=== PATIENT | female | born 1990 | race American Indian/Alaskan Native ===

== ENCOUNTER 2017-10-02 12:06 | Emergency (ER) | payer MEDICAID ==
[2017-10-02 12:37] VITALS: BP 119/67
--- NOTE | 2017-10-02 14:13 | Emergency Department Report ---
ED Laceration HPI - HPI Chief Complaint: Wound/Laceration Stated Complaint: SPLINTER UNDER FINGERNAIL Time Seen by Provider: 10/02/17 14:13 Occurred When: Today Location: Upper Extremity Severity: mild Tetanus Status: Not up to Date Laceration Symptoms: Yes Foreign Body Sensation, Yes Pain, No Numbness, No Weakness Other History: This is a 26-year-old female nontoxic, well nourished in appearance, no acute signs of distress presents to the ED with c/o of finger splint to the right ring finger that occured this morning. Patient stated she was moving her couch and a splinter went into her fingernail. Patient denies any other trauma. Patient denies any nausea, vomiting, chest pain, shortness of breathe, fever, chills, headache, nausea, vomiting, numbness, or tingling. Patient stated allergies to PCN. Denies any PMH. ED Review of Systems ROS: Stated complaint: SPLINTER UNDER FINGERNAIL Other details as noted in HPI Constitutional: denies: chills, fever Eyes: denies: eye pain, eye discharge, vision change ENT: denies: ear pain, throat pain Respiratory: denies: cough, shortness of breath, wheezing Cardiovascular: denies: chest pain, palpitations Endocrine: no symptoms reported Gastrointestinal: denies: abdominal pain, nausea, diarrhea Genitourinary: denies: urgency, dysuria, discharge Musculoskeletal: denies: back pain, joint swelling, arthralgia Skin: denies: rash, lesions Neurological: denies: headache, weakness, paresthesias Psychiatric: denies: anxiety, depression Hematological/Lymphatic: denies: easy bleeding, easy bruising ED Past Medical Hx - Past Medical History Hx Heart Attack/AMI: No Hx Congestive Heart Failure: No Hx Diabetes: No Hx Deep Vein Thrombosis: No Hx Renal Disease: No Hx Sickle Cell Disease: No Hx Seizures: No Hx Asthma: No Hx COPD: No Hx HIV: No Additional medical history: hyperemesis gravidarium - Surgical History Past Surgical History?: No - Social History Smoking Status: Current Every Day Smoker Substance Use Type: Alcohol - Medications Home Medications: Home Medications Medication Instructions Recorded Confirmed Last Taken Type Vit-Fe Fumar-FA [ 1 tab PO QDAY 03/16/15 03/16/15 03/15/15 History Vitamin] Sulfamethoxazole/Trimethoprim 1 each PO BID #14 tablet 10/02/17 Unknown Rx [Bactrim DS TAB] traMADol [Ultram] 50 mg PO Q6HR PRN #15 tablet 10/02/17 Unknown Rx Laceration Physical Exam - Exam General: Vital signs noted. No distress. Alert and acting appropriately. GENERAL: The patient is a well-developed, well-nourished in no apparent distress. Patient is alert and acting appropriately for age. Alert and oriented 3, no apparent distress, normal gait, atraumatic. HEENT: Head is normocephalic and atraumatic. PERRL, Extraocular muscles are intact. Pupils are equal, round, and reactive to light and accommodation. Nares appeared normal. Mouth is well hydrated and without lesions. Mucous membranes are moist. Posterior pharynx clear of any exudate or lesions. Mouth is well hydrated and without lesions. Tonsils not erythematous or swollen. Uvula midline. Tongue elevated. Mucous members are moist. Posterior pharynx clear, no exudate or lesions. Patent airways. NECK: Supple. No carotid bruits. No lymphadenopathy or thyromegaly.nontender. No meningitic signs are noted. LUNGS: Clear to auscultation. Non labor breathing. No intercostal retractions. Symmetrical with respiration, no wheezing, no rales, or crackles. HEART: Regular rate and rhythm without murmur, rubs or gallops. No reproducible. S1, S2 present, regular rate and rhythm without murmur, no rubs, no gallops. ABDOMEN: Soft, nontender, and nondistended. Positive bowel sounds. No hepatosplenomegaly was noted. No guarding or rebound tenderness, negative epigastric bruit. Negative psoas sign, negative zapata sign, negative McBurneys sign EXTREMITIES: Without any cyanosis, clubbing, rash, lesions or edema. Peripheral pulses intact. Capillary refill less than 2 seconds. Full range of motion bilaterally. NEUROLOGIC: Cranial nerves II through XII are grossly intact. Alert and oriented x 3. Normal gait. Symmetrical strength and sensation. Reflexes 2+ throughout. Cerebellar testing normal. GCS score of 15. PSYCHIATRIC: Normal affect with no suicidal or homicidal ideations. Skin: One centimeter straight black foreign body noted underneath the nail of the right ring. Laceration Location: Upper Extremity Laceration Exam: Yes Foreign Body, Yes Normal Distal CMS, No Exposed Tendon, Vessel, or Nerve, No Tendon Injury ED Course Vital Signs 10/02/17 12:35 Temperature 98.4 F Pulse Rate 77 Respiratory 18 Rate Blood Pressure 119/67 O2 Sat by Pulse 100 Oximetry - Reevaluation(s) Reevaluation #1: 10/02/17 14:57 Patient is speaking in full sentences with no signs of distress noted. - Procedure Description Procedures done: Under sterile field, I used Betadine to clean the area. I then used 40 mL of normal saline to flush the area. I then used 1 0.5% Marcaine plain for a digital block and injected 3 mL. I then used a 0.5 forceps and went under the nail bed and removed 2 pieces of 0.5 cm straight for body which is consistent with a piece of wood. I then applied a sterile 4 x 4 with tape. Minimal bleeding noted but is under control. Patient tolerated procedure well with no signs of distress. Critical care attestation.: If time is entered above; I have spent that time in minutes in the direct care of this critically ill patient, excluding procedure time. ED Disposition Clinical Impression: Foreign body of finger of right hand Qualifiers: Encounter type: initial encounter Qualified Code(s): S60.459A - Superficial foreign body of unspecified finger, initial encounter Disposition: DC-01 TO HOME OR SELFCARE Is pt being admited?: No Does the pt Need Aspirin: No Condition: Stable Instructions: Soft Tissue Foreign Body (ED) Additional Instructions: Follow-up with a primary care doctor in 3-5 days or if symptoms worsen and continue return to emergency room as soon as possible. Prescriptions: Sulfamethoxazole/Trimethoprim [Bactrim DS TAB] 1 each PO BID #14 tablet traMADol [Ultram] 50 mg PO Q6HR PRN #15 tablet PRN Reason: Pain Referrals: PRIMARY CARE, [Primary Care Provider] - 3-5 Days JUANI AREVALO MD [Staff Physician] - 3-[address] [facility] [Outside] - 3-5 Days [facility] [Outside] - 3-5 Days Forms: Work/School Release Form(ED)
[2017-10-02] MEDS ORDERED: MARCAINE 0.5% INFILTRATI ONE (14:29)
[2017-10-02] MEDS ORDERED: BOOSTRIX IM ONE (14:30)
== END 2017-10-02 15:20 | disposition home or self-care (01) ==
LOC: ED 12:06
DX: S60.454A Superficial foreign body of right ring finger, initial encounter (principal); F17.200 Nicotine dependence, unspecified, uncomplicated; Z88.0 Allergy status to penicillin; W45.8XXA Other foreign body or object entering through skin, initial encounter; Y93.89 Activity, other specified; Y99.8 Other external cause status; Y92.89 Other specified places as the place of occurrence of the external cause
CPT/HCPCS: 90471; 90715

== ENCOUNTER 2017-12-17 11:45 | Emergency (ER) | payer MEDICAID ==
[2017-12-17 12:15] VITALS: BP 126/71
[2017-12-17 13:44] LABS: Bacteria,Urine 1+ /HPF (Negative); Bilirubin,Urine NEG (Negative); Blood,Urine NEG (Negative); Color,Urine Yellow (Yellow); HCG Qualitative,Urine Negative (Negative); Mucus,Urine 1+ /HPF; Protein,Urine <15 mg/dL mg/dL (Negative); Urobilinogen,Urine < 2.0 mg/dL (<2.0)
--- NOTE | 2017-12-17 14:17 | Emergency Department Report ---
ED Back Pain/Injury HPI - General Chief Complaint: Back Pain/Injury Stated Complaint: SEVERE BACK PAIN/CRAMPS/CP Time Seen by Provider: 12/17/17 13:35 Source: patient, family Limitations: No Limitations - History of Present Illness Initial Comments: Patient reports that she has lower mid back pain on and off times one month of bilateral radiation around and down both legs. She is concerned for fibroids but she has not reported this to her AIR TUCKER. She does have AIR TUCKER doctor. Patient also said the pain is radiated into her epigastric area and that she is worried about her IUD. Denies any fever or chills. Pain is 6 out of 10 to back and feels dull. Denies any trauma. Denies any nausea or vomiting. Denies any vaginal discharge or bleeding. Denies any chest pain or shortness of breath. Denies any swelling in legs. Last menstrual period 09/21/2017 Complaint: back pain Onset/Timin -: month(s) Similar Symptoms Previously: Yes Place: home Radiation: abdomen, left leg, right leg Severity: moderate Severity scale (0 -10): 6 Quality: dull Consistency: intermittent Improves With: none Worsens With: none Context: unknown Associated Symptoms: abdominal pain. denies: confusion, weakness, chest pain, numbness, difficulty walking, cough, difficulty urinating, diaphoresis, incontinence, fever/chills, constipation, headaches, loss of appetite, malaise, nausea/vomiting, rash, seizure, shortness of breath, syncope Treatments Prior to Arrival: other - Related Data Home Medications Medication Instructions Recorded Confirmed Last Taken Vit-Fe Fumar-FA [ 1 tab PO QDAY 03/16/15 03/16/15 03/15/15 Vitamin] Previous Rx's Medication Instructions Recorded Last Taken Type Sulfamethoxazole/Trimethoprim 1 each PO BID #14 tablet 10/02/17 Unknown Rx [Bactrim DS TAB] traMADol [Ultram] 50 mg PO Q6HR PRN #15 tablet 10/02/17 Unknown Rx Acetaminophen/Codeine [Tylenol 1 tab PO Q6H PRN #12 tab 12/17/17 Unknown Rx /Codeine # 3 tab] Ibuprofen [Motrin] 600 mg PO Q8H PRN #15 tablet 12/17/17 Unknown Rx Nitrofurantoin Monohyd/M-Cryst 100 mg PO Q12H 5 Days #10 capsule 12/17/17 Unknown Rx [Macrobid 100 mg Capsule] Allergies Allergy/AdvReac Type Severity Reaction Status Date / Time Penicillins Allergy Rash Verified 03/16/15 13:15 ED Review of Systems ROS: Stated complaint: SEVERE BACK PAIN/CRAMPS/CP Other details as noted in HPI Constitutional: denies: chills, fever Eyes: denies: eye pain, eye discharge ENT: denies: ear pain, throat pain Respiratory: denies: cough, shortness of breath, SOB with exertion, SOB at rest , stridor, wheezing Cardiovascular: denies: chest pain, palpitations, dyspnea on exertion, edema, syncope Gastrointestinal: abdominal pain. denies: nausea, diarrhea, constipation, hematemesis, hematochezia Genitourinary: denies: urgency, dysuria, frequency, hematuria, discharge Musculoskeletal: back pain, arthralgia. denies: joint swelling, myalgia Skin: denies: rash, lesions Neurological: denies: headache, weakness, numbness, paresthesias, abnormal gait , vertigo ED Past Medical Hx - Past Medical History Medical history: no medical history Surgical history: no surgical history Psychiatric history: no pertinent history AIR TUCKER history: no AIR TUCKER history Family history: diabetes, hypertension - Social History Smoking Status: Never Smoker Alcohol use: none Drug use: none ED Back Pain Physical Exam - Exam General: Vital signs noted. No distress. Alert and acting appropriately. This is a 27-year-old female well-nourished well-developed in no acute distress. Neurological: Patient alert and oriented 3, GCS of 15, speech is clear and fluid, reflexes are normal and gait are normal. No motor or sensory deficit. Negative Romberg and pronator drift. +5 strength in all extremities. Lungs: Clear to auscultate bilaterally, no rhonchi wheezes or rales CV: S1, S2. Regular rate and rhythm Skin: Clean dry and intact no rash or lesions Psych: S1, S2. Regular rate and rhythm Back/Abdomen: No Abdominal Tenderness (NTTP), No Perithoracic Tenderness (no vertebral tenderness. No rash noted to back), No Perilumbar Tenderness (no vertebral tenderness), No Sacroiliac Tenderness, No Flank Tenderness, No Straight Leg Raise Pain Neuro: Yes Normal Sensation, Yes Motor Weakness, Yes Normal DTR's, Yes Normal Gait ED Course Vital Signs 12/17/17 12:11 Temperature 98.1 F Pulse Rate 68 Respiratory 18 Rate Blood Pressure 126/71 O2 Sat by Pulse 97 Oximetry - Reevaluation(s) Reevaluation #1: 12/17/17 15:43 Patient given hydrocodone 5/325 2 tablets by mouth and Zofran 8 mg by mouth in the emergency room. She reports that her pain is better and she is stable at present. Ed Back Pain Tests - Tests Tests: Abnormal UA (positive leukocyte Estrace and positive bacteria in urine. Culture sent) ED Medical Decision Making - Lab Data Lab Results 12/17/17 Range/Units Unknown Urine Color Yellow (Yellow) Urine Turbidity Clear (Clear) Urine pH 5.0 (5.0-7.0) Ur Specific [place] 1.024 (1.003-1.030) Urine Protein <15 mg/dl (Negative) mg/dL Urine Glucose (UA) Neg (Negative) mg/dL Urine Ketones Tr (Negative) mg/dL Urine Blood Neg (Negative) Urine Nitrite Neg (Negative) Urine Bilirubin Neg (Negative) Urine Urobilinogen < 2.0 (<2.0) mg/dL Ur Leukocyte Esterase Sm (Negative) Urine WBC (Auto) 4.0 (0.0-6.0) /HPF Urine RBC (Auto) 2.0 (0.0-6.0) /HPF U Epithel Cells (Auto) 3.0 (0-13.0) /HPF Urine Bacteria (Auto) 1+ (Negative) /HPF Urine Mucus 1+ /HPF Urine HCG, Qual Negative (Negative) Urine culture sent and pending - EKG Data -: EKG Interpreted by Me (attending physician) EKG shows normal: sinus rhythm Rate: normal (77 bpm) - EKG Data Interpretation: no acute changes, normal EKG - Medical Decision Making Patient has been evaluated by this provider in fast track. She was found to have acute exacerbation of chronic back pain with lumbar radiculopathy which she is had in the past. Patient is also, concern for IUD due to symptoms and concerns for fibroids and she has not been diagnosed with fibroids. She says she has an AIR TUCKER. Patient is neurological intact and her back exam is normal she has a urinary tract infection. I discussed with her she needs to follow-up with her AIR TUCKER regarding evaluation for fibroids, IUD concerns and abnormal menses-referred back to her AIR TUCKER I also discussed that she needs to follow-up with orthopedic doctor regarding chronic back pain-referred to Dr. Umana orthopedist Patient was given [place] 5/852 tablets by mouth for pain and Zofran 8 mg ODT to prevent nausea. Her pain is controlled. Urinalysis done and shows positive leukocyte esterase, positive bacteria and trace ketone. test is negative. 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 Patient discharged home in stable condition with her family with prescription for Tylenol 3, Motrin, her vital signs are stable she is afebrile, she'll be placed on Macrobid for urinary tract infection and she was given prescription. I discussed with her she needs to return to emergency room if her condition worsens but if not to keep referral would AIR TUCKER orthopedic doctor and she voiced understanding. - Differential Diagnosis , acute exacerbation of chronic back pain, UTI Critical care attestation.: If time is entered above; I have spent that time in minutes in the direct care of this critically ill patient, excluding procedure time. ED Disposition Clinical Impression: Acute exacerbation of chronic low back pain, Lumbar radiculopathy UTI (urinary tract infection) Qualifiers: Urinary tract infection type: acute cystitis Hematuria presence: without hematuria Qualified Code(s): N30.00 - Acute cystitis without hematuria Abdominal pain Qualifiers: Abdominal location: lower abdomen, unspecified Qualified Code(s): R10.30 - Lower abdominal pain, unspecified Disposition: TO HOME OR SELFCARE Is pt being admited?: No Does the pt Need Aspirin: No Condition: Stable Instructions: Urinary Tract Infection in Women (ED), Back Pain (ED), Lumbar Radiculopathy (ED), Abdominal Pain (ED) Additional Instructions: Please follow up with AIR TUCKER as discussed. Call your AIR TUCKER and schedule an appointment for follow-up visit Follow-up with Dr. Umana was orthopedic doctor regarding your back pain or radiation down to the legs. Take medication as prescribed but please do not drive or operate heavy machinery while taking Tylenol No. 3 as it causes drowsiness Take Macrobid for urinary tract infection and make sure you drink plenty of water Prescriptions: Acetaminophen/Codeine [Tylenol /Codeine # 3 tab] 1 tab PO Q6H PRN #12 tab PRN Reason: severe pain Ibuprofen [Motrin] 600 mg PO Q8H PRN #15 tablet PRN Reason: Pain Nitrofurantoin Monohyd/M-Cryst [Macrobid 100 mg Capsule] 100 mg PO Q12H 5 Days # 10 capsule Referrals: XOCHITL HEREDIA MD [Primary Care Provider] - 2-3 Days CALDERON Daly [Other] - 2-3 Days MERYL UMANA MD [Staff Physician] - 2-3 Days Forms: Work/School Release Form(ED)
[2017-12-17] MEDS ORDERED: ZOFRAN ODT PO ONE (14:19)
[2017-12-17] MEDS ORDERED: NORCO 5/325 PO ONE (14:19)
== END 2017-12-17 16:10 | disposition home or self-care (01) ==
LOC: ED 11:45
DX: N30.00 Acute cystitis without hematuria (principal)
CPT/HCPCS: 81001; 81025; 87086; 93005; 93010; Q0162

== ENCOUNTER 2017-12-19 15:35 | Emergency (ER) | payer MEDICAID ==
[2017-12-19 15:48] VITALS: BP 121/75
--- NOTE | 2017-12-19 21:02 | Emergency Department Report ---
ED Back Pain/Injury HPI - General Chief Complaint: Extremity Injury, Lower Stated Complaint: BACK PAIN Time Seen by Provider: 12/19/17 21:01 Source: patient Limitations: No Limitations - History of Present Illness Initial Comments: 27-year-old -[place] female comes for back and abdominal pain 6 days. Patient states she was seen here on 12/17/2017 for the same issue diagnosis with the UTI and back pain. Patient reports the pain is 8 out of 10 on a 0-10 pain scale. Patient reports that the pain is worse with position change. Patient denies any fever or chills admits to nausea but no vomiting. States that the ibuprofen and the Tylenol 3 is not touching her pain at all. Patient started vomiting while in fast track. MD Complaint: back pain -: days(s) (6) Similar Symptoms Previously: Yes Severity scale (0 -10): 8 Consistency: constant Improves With: none Worsens With: movement - Related Data Home Medications Medication Instructions Recorded Confirmed Last Taken Vit-Fe Fumar-FA [ 1 tab PO QDAY 03/16/15 03/16/15 03/15/15 Vitamin] Previous Rx's Medication Instructions Recorded Last Taken Type Sulfamethoxazole/Trimethoprim 1 each PO BID #14 tablet 10/02/17 Unknown Rx [Bactrim DS TAB] traMADol [Ultram] 50 mg PO Q6HR PRN #15 tablet 10/02/17 Unknown Rx Acetaminophen/Codeine [Tylenol 1 tab PO Q6H PRN #12 tab 12/17/17 Unknown Rx /Codeine # 3 tab] Ibuprofen [Motrin] 600 mg PO Q8H PRN #15 tablet 12/17/17 Unknown Rx Nitrofurantoin Monohyd/M-Cryst 100 mg PO Q12H 5 Days #10 capsule 12/17/17 Unknown Rx [Macrobid 100 mg Capsule] HYDROcodone/ACETAMINOPHEN [[place] 1 each PO Q6H PRN 3 Days #12 tablet 12/20/17 Unknown Rx 7.5-325 Tablet] Allergies Allergy/AdvReac Type Severity Reaction Status Date / Time Penicillins Allergy Rash Verified 03/16/15 13:15 ED Review of Systems ROS: Stated complaint: BACK PAIN Other details as noted in HPI ED Past Medical Hx - Past Medical History Previous Medical History?: Yes Hx Heart Attack/AMI: No Hx Congestive Heart Failure: No Hx Diabetes: No Hx Deep Vein Thrombosis: No Hx Renal Disease: No Hx Sickle Cell Disease: No Hx Seizures: No Hx Asthma: No Hx COPD: No Hx HIV: No Additional medical history: hyperemesis gravidarium - Surgical History Past Surgical History?: No - Social History Smoking Status: Current Every Day Smoker Substance Use Type: None - Medications Home Medications: Home Medications Medication Instructions Recorded Confirmed Last Taken Type Vit-Fe Fumar-FA [ 1 tab PO QDAY 03/16/15 03/16/15 03/15/15 History Vitamin] Sulfamethoxazole/Trimethoprim 1 each PO BID #14 tablet 10/02/17 Unknown Rx [Bactrim DS TAB] traMADol [Ultram] 50 mg PO Q6HR PRN #15 tablet 10/02/17 Unknown Rx Acetaminophen/Codeine [Tylenol 1 tab PO Q6H PRN #12 tab 12/17/17 Unknown Rx /Codeine # 3 tab] Ibuprofen [Motrin] 600 mg PO Q8H PRN #15 tablet 12/17/17 Unknown Rx Nitrofurantoin Monohyd/M-Cryst 100 mg PO Q12H 5 Days #10 capsule 12/17/17 Unknown Rx [Macrobid 100 mg Capsule] HYDROcodone/ACETAMINOPHEN [[place] 1 each PO Q6H PRN 3 Days #12 tablet 12/20/17 Unknown Rx 7.5-325 Tablet] ED Physical Exam - General Limitations: No Limitations General appearance: alert, in no apparent distress - Head Head exam: Present: atraumatic, normocephalic - Eye Eye exam: Present: normal appearance, PERRL - ENT ENT exam: Present: mucous membranes moist - Neck Neck exam: Present: full ROM. Absent: lymphadenopathy - Respiratory Respiratory exam: Present: normal lung sounds bilaterally. Absent: respiratory distress - Cardiovascular Cardiovascular Exam: Present: regular rate, normal rhythm. Absent: systolic murmur, diastolic murmur, rubs, gallop - GI/Abdominal GI/Abdominal exam: Present: soft. Absent: distended, tenderness - Extremities Exam Extremities exam: Present: full ROM. Absent: tenderness, pedal edema - Back Exam Back exam: Present: tenderness (lower back) - Neurological Exam Neurological exam: Present: alert, oriented X3 - Psychiatric Psychiatric exam: Present: normal affect, normal mood - Skin Skin exam: Present: warm, dry, intact, normal color. Absent: rash ED Course Vital Signs 12/19/17 15:43 Temperature 98.1 F Pulse Rate 71 Respiratory 18 Rate Blood Pressure 121/75 O2 Sat by Pulse 100 Oximetry ED Medical Decision Making - Lab Data Result diagrams: 12/19/17 21:30 12/19/17 21:30 - Radiology Data Radiology results: report reviewed, image reviewed FINDINGS: Uterus measures 7.3 x 3.5 x 3.5 centimeters. Endometrial stripe measures 4 millimeters. IUD is the slightly low lying localized to the mid inferior margin the endometrial canal as well as the endocervical canal region. Limbs of the IUD appear to be imbedded in the myometrium. This is better seen by CT. Probable tiny focus of calcification along the mid uterine body. No other uterine lesions. Right ovary measures 3.3 x 2.1 x 2.9 centimeters. Left ovary measures 3.2 x 1.4 x 2.4 centimeters. Small follicles are present. No adnexal masses or free fluid. IMPRESSION: IUD is low lying localized lower uterine segment and endocervical canal region. The limbs of the IUD. To be imbedded in the myometrium. This is better seen by CT. Punctate calcification within the uterine body. No other uterine lesions. Ovaries are grossly unremarkable. Transcribed By: LMA Dictated By: LATA ARIZA MD Electronically Authenticated By: LATA ARIZA MD Signed Date/Time: 12/20/17319 DD/ 9 CT abdomen and pelvis with contrast Findings: The lung bases are clear. There are no pleural effusions. The heart size is normal. The liver, pancreas and spleen appears normal. The gallbladder is present. Adrenal glands are not enlarged. Both kidneys appear normal in size and configuration. The abdominal aorta has a normal caliber. There is no retroperitoneal adenopathy. On palpation D gastroenterology track is unremarkable. A normal appendix is visible. The bladder is empty. There is an IUD in the uterus. One limb of the IUD may penetrate the myometrium. This could be better evaluated by ultrasound scanning. There is no fluid in the cul- de-sac. There are regional skeleton appears intact. Impression: Indeterminate positioning of the IUD within the uterus. Otherwise normal studies of the abdomen and pelvic. - Medical Decision Making Patient has been evaluated for this provider fast track. Patient's a repeat from 12/17/2017. Labs were ordered CT of the abdomen and pelvic shows that her IUD arm may be embedded into the myometrium they recommended ultrasound Ultrasound performed shows that there may be arm in the myometrium they recommended a CT. Patient has an appointment today which is 12/20/2017 with [facility]. Patient's pain has been managed with morphine which she reports has brought it down to approximately about a 5-6 versus a at 8-10. Critical care attestation.: If time is entered above; I have spent that time in minutes in the direct care of this critically ill patient, excluding procedure time. ED Disposition Clinical Impression: IUD complication Qualifiers: Device complication type: mechanical Mechanical complication type: displacement Encounter type: initial encounter Qualified Code(s): T83.32XA - Displacement of intrauterine contraceptive device, initial encounter UTI (urinary tract infection) Qualifiers: Urinary tract infection type: acute cystitis Hematuria presence: without hematuria Qualified Code(s): N30.00 - Acute cystitis without hematuria Disposition: - TO HOME OR SELFCARE Is pt being admited?: No Does the pt Need Aspirin: No Condition: Stable Additional Instructions: Please be sure to keep your appointment with [facility] today which is . Prescription for [place] 5/325 for pain management. Please continue with her antibiotics for urinary tract infection that was prescribed to you on 12/17/2017. Prescriptions: HYDROcodone/ACETAMINOPHEN [[place] 7.5-325 Tablet] 1 each PO Q6H PRN 3 Days #12 tablet PRN Reason: Pain , Severe (7-10) Referrals: PRIMARY CARE, [Primary Care Provider] - 3-5 Days [facility] [Provider Group] - 3-5 Days Forms: Work/School Release Form(ED)
[2017-12-19] MEDS ORDERED: ZOFRAN ODT PO ONE (21:15)
[2017-12-19] MEDS ORDERED: ZOFRAN ONE (21:31)
[2017-12-19] MEDS ORDERED: ZOFRAN IV ONE (21:36)
[2017-12-19 22:00] LABS: Basophils % (Auto) 0.5 % (0.0-1.8); Eosinophils # (Auto) 0.1 K/mm3 (0.0-0.4); Eosinophils % (Auto) 0.7 % (0.0-4.3); Hematocrit 44.3 % (30.3-42.9); Hemoglobin 14.1 gm/dl (10.1-14.3); Lymphocytes % (Auto) 36.4 % (13.4-35.0); Mean Corpuscular HGB Conc 32 % (30-34); Mean Corpuscular Hemoglobin 28 pg (28-32); Mean Corpuscular Volume 89 fl (79-97); Monocytes # (Auto) 0.4 K/mm3 (0.0-0.8); Monocytes % (Auto) 4.6 % (0.0-7.3); Platelet Count 263 K/mm3 (140-440); Red Blood Count 4.97 M/mm3 (3.65-5.03); Red Cell Distribution Width 13.4 % (13.2-15.2)
[2017-12-19 22:17] LABS: Alanine Aminotransferase 21 units/L (7-56); Albumin 4.8 g/dL (3.9-5); BUN/Creatinine Ratio 11; Blood Urea Nitrogen 10 mg/dL (7-17); Calcium 9.8 mg/dL (8.4-10.2); Hemolysis Index 1
[2017-12-19 23:20] LABS: Bilirubin,Urine NEG (Negative); Blood,Urine LG (Negative); Color,Urine Yellow (Yellow); Mucus,Urine 3+ /HPF; Urobilinogen,Urine < 2.0 mg/dL (<2.0)
[2017-12-19 23:33] LABS: RBC,Urine > 182.0 /HPF (0.0-6.0)
--- NOTE | 2017-12-19 23:44 | Cat Scan Report ---
FINAL REPORT PROCEDURE: CT abdomen and pelvis with contrast. TECHNIQUE: Computerized axial tomography of the abdomen and pelvis was performed after the IV injection of iodinated nonionic contrast. HISTORY: Abdominal pain with vomiting. COMPARISON: No prior studies are available for comparison. FINDINGS: The lung bases are clear. There are no pleural effusions. The heart size is normal. The liver, pancreas and spleen appear normal. The gallbladder is present. The adrenal glands are not enlarged. Both kidneys appear normal in size and configuration. The abdominal aorta has a normal caliber. There is no retroperitoneal adenopathy. The unopacified gastrointestinal tract is unremarkable. A normal appendix is visible. The bladder is empty. There is an IUD in the uterus. One limb of the IUD may penetrate the myometrium. This could be better evaluated by ultrasound scanning. There is no fluid in the cul-de-sac. The regional skeleton appears intact. IMPRESSION: Indeterminate positioning of the IUD within the uterus. Otherwise normal studies of the abdomen and pelvis.
[2017-12-20] MEDS ORDERED: MORPHINE IV ONE ×2 (00:27→03:41)
[2017-12-20] MEDS ORDERED: REGLAN IV ONE (00:27)
--- NOTE | 2017-12-20 03:25 | Ultrasound Report ---
FINAL REPORT EXAM: US TRANSVAGINAL HISTORY: IUD issue, pain COMPARISON: CT of the abdomen and pelvis from yesterday. TECHNIQUE: Several real-time grayscale and color Doppler images were obtained. Transabdominal and transvaginal exam. FINDINGS: Uterus measures 7.3 x 3.5 x 3.5 centimeters. Endometrial stripe measures 4 millimeters. IUD is the slightly low lying localized to the mid inferior margin the endometrial canal as well as the endocervical canal region. Limbs of the IUD appear to be imbedded in the myometrium. This is better seen by CT. Probable tiny focus of calcification along the mid uterine body. No other uterine lesions. Right ovary measures 3.3 x 2.1 x 2.9 centimeters. Left ovary measures 3.2 x 1.4 x 2.4 centimeters. Small follicles are present. No adnexal masses or free fluid. IMPRESSION: IUD is low lying localized lower uterine segment and endocervical canal region. The limbs of the IUD. To be imbedded in the myometrium. This is better seen by CT. Punctate calcification within the uterine body. No other uterine lesions. Ovaries are grossly unremarkable.
--- NOTE | 2017-12-20 03:25 | Ultrasound Report ---
FINAL REPORT EXAM: US PELVIC COMPLETE HISTORY: concern for IUD in the myometrium COMPARISON: CT of the abdomen and pelvis from yesterday. TECHNIQUE: Several real-time grayscale and color Doppler images were obtained. Transabdominal and transvaginal exam. FINDINGS: Uterus measures 7.3 x 3.5 x 3.5 centimeters. Endometrial stripe measures 4 millimeters. IUD is the slightly low lying localized to the mid inferior margin the endometrial canal as well as the endocervical canal region. Limbs of the IUD appear to be imbedded in the myometrium. This is better seen by CT. Probable tiny focus of calcification along the mid uterine body. No other uterine lesions. Right ovary measures 3.3 x 2.1 x 2.9 centimeters. Left ovary measures 3.2 x 1.4 x 2.4 centimeters. Small follicles are present. No adnexal masses or free fluid. IMPRESSION: IUD is low lying localized lower uterine segment and endocervical canal region. The limbs of the IUD. To be imbedded in the myometrium. This is better seen by CT. Punctate calcification within the uterine body. No other uterine lesions. Ovaries are grossly unremarkable.
== END 2017-12-20 04:12 | disposition home or self-care (01) ==
LOC: ED 15:35
DX: T83.32XA Displacement of intrauterine contraceptive device, initial encounter (principal); N30.00 Acute cystitis without hematuria; F17.200 Nicotine dependence, unspecified, uncomplicated; Z88.0 Allergy status to penicillin
CPT/HCPCS: 36415; 74177; 76830; 76856; 80053; 81001; 84703; 85025; 96374; 96375; 96376; 99284; J2405; Q9967

== ENCOUNTER 2017-12-20 13:16 | Emergency (ER) | payer MEDICAID ==
[2017-12-20] MEDS ORDERED: ZOFRAN ODT PO ONE (15:58)
[2017-12-20] MEDS ORDERED: TORADOL IM ONE (15:58)
--- NOTE | 2017-12-20 16:49 | Emergency Department Report ---
ED Abdominal Pain HPI - General Chief Complaint: Abdominal Pain Stated Complaint: POSSIBLE IUD REMOVAL Time Seen by Provider: 12/20/17 15:53 Source: patient Mode of arrival: Ambulatory Limitations: No Limitations - History of Present Illness Initial Comments: Ms. Pena is a 27-year-old female who has had abdominal pain for 7 days. Diffuse abdominal pain. No nausea vomiting or appetite. She has IUD in place. She was informed that the IUD is embedded. She feels that her pain is related to the IUD and she wants it removed. She denies any fever. She denies any vaginal discharge. She denies any vaginal bleeding. She received prescription for Morris. She did not fill this prescription. She attempted to have IUD removed today at 2 different clinics. However next available appointment next week. She had a recent fall. She has lower back pain. She feels as if her back "popped". She is able to walk without assistance. She denies any weakness or numbness in the legs. She denies any urinary or fecal Incontinence. Severity scale (0 -10): 8 - Related Data Home Medications Medication Instructions Recorded Confirmed Last Taken Vit-Fe Fumar-FA [ 1 tab PO QDAY 03/16/15 03/16/15 03/15/15 Vitamin] Previous Rx's Medication Instructions Recorded Last Taken Type Sulfamethoxazole/Trimethoprim 1 each PO BID #14 tablet 10/02/17 Unknown Rx [Bactrim DS TAB] traMADol [Ultram] 50 mg PO Q6HR PRN #15 tablet 10/02/17 Unknown Rx Acetaminophen/Codeine [Tylenol 1 tab PO Q6H PRN #12 tab 12/17/17 Unknown Rx /Codeine # 3 tab] Ibuprofen [Motrin] 600 mg PO Q8H PRN #15 tablet 12/17/17 Unknown Rx Nitrofurantoin Monohyd/M-Cryst 100 mg PO Q12H 5 Days #10 capsule 12/17/17 Unknown Rx [Macrobid 100 mg Capsule] HYDROcodone/ACETAMINOPHEN [Morris 1 each PO Q6H PRN 3 Days #12 tablet 12/20/17 Unknown Rx 7.5-325 Tablet] Promethazine [Phenergan TAB] 25 mg PO Q6HR PRN #10 tab 12/20/17 Unknown Rx Allergies Allergy/AdvReac Type Severity Reaction Status Date / Time Penicillins Allergy Rash Verified 03/16/15 13:15 ED Review of Systems ROS: Stated complaint: POSSIBLE IUD REMOVAL Other details as noted in HPI Comment: All other systems reviewed and negative Constitutional: denies: diaphoresis, malaise Respiratory: denies: cough Cardiovascular: denies: chest pain ED Past Medical Hx - Past Medical History Previous Medical History?: No Hx Heart Attack/AMI: No Hx Congestive Heart Failure: No Hx Diabetes: No Hx Deep Vein Thrombosis: No Hx Renal Disease: No Hx Sickle Cell Disease: No Hx Seizures: No Hx Asthma: No Hx COPD: No Hx HIV: No Additional medical history: hyperemesis gravidarium - Surgical History Past Surgical History?: No - Social History Smoking Status: Current Every Day Smoker Substance Use Type: None - Medications Home Medications: Home Medications Medication Instructions Recorded Confirmed Last Taken Type Vit-Fe Fumar-FA [ 1 tab PO QDAY 03/16/15 03/16/15 03/15/15 History Vitamin] Sulfamethoxazole/Trimethoprim 1 each PO BID #14 tablet 10/02/17 Unknown Rx [Bactrim DS TAB] traMADol [Ultram] 50 mg PO Q6HR PRN #15 tablet 10/02/17 Unknown Rx Acetaminophen/Codeine [Tylenol 1 tab PO Q6H PRN #12 tab 12/17/17 Unknown Rx /Codeine # 3 tab] Ibuprofen [Motrin] 600 mg PO Q8H PRN #15 tablet 12/17/17 Unknown Rx Nitrofurantoin Monohyd/M-Cryst 100 mg PO Q12H 5 Days #10 capsule 12/17/17 Unknown Rx [Macrobid 100 mg Capsule] HYDROcodone/ACETAMINOPHEN [Morris 1 each PO Q6H PRN 3 Days #12 tablet 12/20/17 Unknown Rx 7.5-325 Tablet] Promethazine [Phenergan TAB] 25 mg PO Q6HR PRN #10 tab 12/20/17 Unknown Rx ED Physical Exam - General Limitations: No Limitations General appearance: alert, in no apparent distress - Head Head exam: Present: atraumatic, normocephalic - Eye Eye exam: Present: normal appearance - ENT ENT exam: Present: mucous membranes moist - Neck Neck exam: Present: normal inspection - Respiratory Respiratory exam: Present: normal lung sounds bilaterally. Absent: respiratory distress, wheezes, rales, rhonchi - Cardiovascular Cardiovascular Exam: Present: regular rate, normal rhythm, normal heart sounds. Absent: systolic murmur, diastolic murmur, rubs, gallop - GI/Abdominal GI/Abdominal exam: Present: soft, normal bowel sounds. Absent: distended, tenderness, guarding, rebound - Extremities Exam Extremities exam: Present: normal inspection - Back Exam Back exam: Present: normal inspection - Neurological Exam Neurological exam: Present: alert, oriented X3 - Psychiatric Psychiatric exam: Present: normal affect, normal mood - Skin Skin exam: Present: warm, dry, intact, normal color. Absent: rash ED Course Vital Signs 12/20/17 12/20/17 12/20/17 13:23 16:28 16:46 Temperature 98.7 F Pulse Rate 82 72 Respiratory 18 15 Rate Blood Pressure 121/76 112/76 O2 Sat by Pulse 97 99 Oximetry ED Medical Decision Making - Medical Decision Making Ms. Pena has diffuse abdominal pain with nausea and vomiting. I do not feel that the intended IUD explains the majority of her symptoms. Dr. Cruz [employer] was consulted by phone. Dr. Cruz did not feel that the IUD needed to be removed immediately. She needs to follow with [employer] outpatient. No evidence of peritonitis. I reviewed CT and ultrasound reports which were obtained on recent ED encounter last night. No acute process otherwise. Patient has normal white count. Normal vital signs. I have prescribed promethazine. Also provided referral to outpatient [employer]. Critical care attestation.: If time is entered above; I have spent that time in minutes in the direct care of this critically ill patient, excluding procedure time. ED Disposition Clinical Impression: Abdominal pain, IUD complication Disposition: TO HOME OR SELFCARE Is pt being admited?: No Does the pt Need Aspirin: No Condition: Stable Instructions: Abdominal Pain (ED) Prescriptions: Promethazine [Phenergan TAB] 25 mg PO Q6HR PRN #10 tab PRN Reason: Nausea Referrals: SHWETA CRUZ MD [Staff Physician] - 3-5 Days Time of Disposition: 16:43
[2017-12-20 16:59] VITALS: BP 112/76
== END 2017-12-20 16:59 | disposition home or self-care (01) ==
LOC: ED 13:16
DX: T83.39XA Other mechanical complication of intrauterine contraceptive device, initial encounter (principal); F17.200 Nicotine dependence, unspecified, uncomplicated; Z88.0 Allergy status to penicillin
CPT/HCPCS: 96372; 99282; J1885; Q0162

== ENCOUNTER 2017-12-22 00:39 | Emergency (ER) | payer MEDICAID ==
[2017-12-22 02:11] LABS: Bilirubin,Urine NEG (Negative); Blood,Urine NEG (Negative); Color,Urine Yellow (Yellow); Mucus,Urine 2+ /HPF; Protein,Urine <15 mg/dL mg/dL (Negative)
[2017-12-22] MEDS ORDERED: TORADOL IM ONE (02:22)
[2017-12-22] MEDS ORDERED: FLEXERIL PO ONE (02:22)
--- NOTE | 2017-12-22 02:27 | Emergency Department Report ---
ED Back Pain/Injury HPI - General Chief Complaint: Back Pain/Injury Stated Complaint: BACK PAIN Time Seen by Provider: 12/22/17 01:53 Source: patient, EMS Limitations: Physical Limitation - History of Present Illness Initial Comments: This is a 27-year-old female nontoxic, well nourished in appearance, no acute signs of distress presents to the ED with c/o of acute on chronic lower back pain. Patient stated that last night she was bending over to potato picker something and heard a pop and pain started. Patient states has history of sciatica nerve pain which is similar symptoms as today. Patient states that pain radiates through to his left lower extremity. Patient denies any trauma. Denies any bladder or bowel instability. Patient denies any urinary symptoms. Denies any fever, chills, nausea, vomiting, headache, stiff neck, chest pain or shortness of breath. Patient denies any numbness or tingling. Patient stated allergies to PCN. Denies significant past medical history. MD Complaint: back pain -: Last night Similar Symptoms Previously: Yes Place: home Radiation: left leg Severity: mild Severity scale (0 -10): 8 Quality: aching Consistency: intermittent Improves With: immobilization, supine, sitting upright Worsens With: movement, walking Context: while lifting, turning/twisting Associated Symptoms: denies other symptoms. denies: confusion, weakness, chest pain, numbness, difficulty walking, cough, difficulty urinating, diaphoresis, incontinence, fever/chills, constipation, headaches, abdominal pain, loss of appetite, malaise, nausea/vomiting, rash, seizure, shortness of breath, syncope - Related Data Home Medications Medication Instructions Recorded Confirmed Last Taken Vit-Fe Fumar-FA [ 1 tab PO QDAY 03/16/15 03/16/15 03/15/15 Vitamin] Previous Rx's Medication Instructions Recorded Last Taken Type Sulfamethoxazole/Trimethoprim 1 each PO BID #14 tablet 10/02/17 Unknown Rx [Bactrim DS TAB] traMADol [Ultram] 50 mg PO Q6HR PRN #15 tablet 10/02/17 Unknown Rx Acetaminophen/Codeine [Tylenol 1 tab PO Q6H PRN #12 tab 12/17/17 Unknown Rx /Codeine # 3 tab] Ibuprofen [Motrin] 600 mg PO Q8H PRN #15 tablet 12/17/17 Unknown Rx Nitrofurantoin Monohyd/M-Cryst 100 mg PO Q12H 5 Days #10 capsule 12/17/17 Unknown Rx [Macrobid 100 mg Capsule] HYDROcodone/ACETAMINOPHEN [[place] 1 each PO Q6H PRN 3 Days #12 tablet 12/20/17 Unknown Rx 7.5-325 Tablet] Promethazine [Phenergan TAB] 25 mg PO Q6HR PRN #10 tab 12/20/17 Unknown Rx Cyclobenzaprine [Flexeril] 10 mg PO BID PRN #14 tablet 12/22/17 Unknown Rx Ibuprofen [Motrin] 600 mg PO Q8H PRN #30 tablet 12/22/17 Unknown Rx Prednisone [predniSONE 10 mg 10 mg PO .TAPER #1 tab.ds.pk 12/22/17 Unknown Rx (6-Day Pack, 21 Tabs)] Allergies Allergy/AdvReac Type Severity Reaction Status Date / Time Penicillins Allergy Rash Verified 12/22/17 01:13 ED Review of Systems ROS: Stated complaint: BACK PAIN Other details as noted in HPI Constitutional: denies: chills, fever Eyes: denies: eye pain, eye discharge, vision change ENT: denies: ear pain, throat pain Respiratory: denies: cough, shortness of breath, wheezing Cardiovascular: denies: chest pain, palpitations Endocrine: no symptoms reported Gastrointestinal: denies: abdominal pain, nausea, diarrhea Genitourinary: denies: urgency, dysuria, discharge Musculoskeletal: back pain. denies: joint swelling, arthralgia Skin: denies: rash, lesions Neurological: denies: headache, weakness, paresthesias Psychiatric: denies: anxiety, depression Hematological/Lymphatic: denies: easy bleeding, easy bruising ED Past Medical Hx - Past Medical History Hx Heart Attack/AMI: No Hx Congestive Heart Failure: No Hx Diabetes: No Hx Deep Vein Thrombosis: No Hx Renal Disease: No Hx Sickle Cell Disease: No Hx Seizures: No Hx Asthma: No Hx COPD: No Hx HIV: No Additional medical history: hyperemesis gravidarium - Surgical History Past Surgical History?: No - Social History Smoking Status: Never Smoker Substance Use Type: None - Medications Home Medications: Home Medications Medication Instructions Recorded Confirmed Last Taken Type Vit-Fe Fumar-FA [ 1 tab PO QDAY 03/16/15 03/16/15 03/15/15 History Vitamin] Sulfamethoxazole/Trimethoprim 1 each PO BID #14 tablet 10/02/17 Unknown Rx [Bactrim DS TAB] traMADol [Ultram] 50 mg PO Q6HR PRN #15 tablet 10/02/17 Unknown Rx Acetaminophen/Codeine [Tylenol 1 tab PO Q6H PRN #12 tab 12/17/17 Unknown Rx /Codeine # 3 tab] Ibuprofen [Motrin] 600 mg PO Q8H PRN #15 tablet 12/17/17 Unknown Rx Nitrofurantoin Monohyd/M-Cryst 100 mg PO Q12H 5 Days #10 capsule 12/17/17 Unknown Rx [Macrobid 100 mg Capsule] HYDROcodone/ACETAMINOPHEN [[place] 1 each PO Q6H PRN 3 Days #12 tablet 12/20/17 Unknown Rx 7.5-325 Tablet] Promethazine [Phenergan TAB] 25 mg PO Q6HR PRN #10 tab 12/20/17 Unknown Rx Cyclobenzaprine [Flexeril] 10 mg PO BID PRN #14 tablet 12/22/17 Unknown Rx Ibuprofen [Motrin] 600 mg PO Q8H PRN #30 tablet 12/22/17 Unknown Rx Prednisone [predniSONE 10 mg 10 mg PO .TAPER #1 tab.ds.pk 12/22/17 Unknown Rx (6-Day Pack, 21 Tabs)] ED Physical Exam - General Limitations: Physical Limitation General appearance: alert, in no apparent distress - Head Head exam: Present: atraumatic, normocephalic - Eye Eye exam: Present: normal appearance - ENT ENT exam: Present: normal exam, mucous membranes moist - Neck Neck exam: Present: normal inspection, full ROM. Absent: tenderness, meningismus, lymphadenopathy - Respiratory Respiratory exam: Present: normal lung sounds bilaterally. Absent: respiratory distress, wheezes, rales, rhonchi, stridor, chest wall tenderness, accessory muscle use, decreased breath sounds, prolonged expiratory - Cardiovascular Cardiovascular Exam: Present: regular rate, normal rhythm, normal heart sounds. Absent: bradycardia, tachycardia, irregular rhythm, systolic murmur, diastolic murmur, rubs, gallop - GI/Abdominal GI/Abdominal exam: Present: soft, normal bowel sounds - Extremities Exam Extremities exam: Present: normal inspection, full ROM, normal capillary refill. Absent: tenderness - Back Exam Back exam: Present: normal inspection, full ROM, paraspinal tenderness (lumbar paraspinal area). Absent: tenderness, CVA tenderness (R), CVA tenderness (L), muscle spasm, vertebral tenderness, rash noted - Expanded Back Exam Expanded Back exam: Absent: saddle anesthesia Back exam: Negative Straight Leg Raising: Left, Right - Neurological Exam Neurological exam: Present: alert, oriented X3, normal gait - Psychiatric Psychiatric exam: Present: normal affect, normal mood - Skin Skin exam: Present: warm, dry, intact, normal color. Absent: rash ED Course Vital Signs 12/22/17 12/22/17 00:45 01:14 Temperature 98.8 F 98.8 F Pulse Rate 79 84 Respiratory 18 18 Rate Blood Pressure 94/62 94/62 O2 Sat by Pulse 100 99 Oximetry - Reevaluation(s) Reevaluation #1: 12/22/17 02:28 Patient is speaking in full sentences with no signs of distress noted. ED Medical Decision Making - Medical Decision Making This is a 27-year-old female that presents with low back strain. Patient is stable was examined by me. There is no spinal tenderness. There is no cauda equina syndrome during examination. No bladder or bowel instability. Lumbar x- ray obtained and dictated by the radiologist. Patient notified of the report. Patient received Toradol 60 mg IM, Flexeril, and prednisone in the ED which stated that symptoms has resolved and subsided. Patients mother is at bedside and stated she will drive her home after discharge due to possible drowsiness of Flexeril. Patient is discharged with muscle relaxant and Motrin. Patient was instructed not to operate any machinery while taking muscle relaxant as they cause her drowsiness. Patient was referred to Follow-up with a primary care doctor in 3-5 days or if symptoms worsen and continue return to emergency room as soon as possible. At time of discharge, the patient does not seem toxic or ill in appearance. No acute signs of distress noted. Patient agrees to discharge treatment plan of care. No further questions noted by the patient. This chart is dictated with using [employer]. Critical care attestation.: If time is entered above; I have spent that time in minutes in the direct care of this critically ill patient, excluding procedure time. ED Disposition Clinical Impression: Low back strain Qualifiers: Encounter type: initial encounter Qualified Code(s): S39.012A - Strain of muscle, fascia and tendon of lower back, initial encounter Disposition: DC-01 TO HOME OR SELFCARE Is pt being admited?: No Does the pt Need Aspirin: No Condition: Stable Instructions: Low Back Strain (ED), Cyclobenzaprine (By mouth), Ibuprofen (By mouth), Prednisone (By mouth) Additional Instructions: Follow-up with your primary care doctor in 3-5 days or if symptoms worsen such as bladder or bowel stability, chest pain, short of breath, numbness or tingling sensation in extremities, headache, dizziness, visual changes, nausea vomiting, or abdominal pain, return back to emergency room as was possible. Take ibuprofen and Flexeril as prescribed. Do not operate heavy machinery while taking Flexeril due to sedation Prescriptions: Cyclobenzaprine [Flexeril] 10 mg PO BID PRN #14 tablet PRN Reason: Muscle Spasm Ibuprofen [Motrin] 600 mg PO Q8H PRN #30 tablet PRN Reason: Pain Prednisone [predniSONE 10 mg (6-Day Pack, 21 Tabs)] 10 mg PO .TAPER #1 tab.ds.pk Referrals: PRIMARY CARE, [Primary Care Provider] - 3-5 Days JUANI AREVALO MD [Staff Physician] - 3-5 Days [facility] [place] [Outside] - 3-5 Days [facility] [Outside] - 3-5 Days Forms: Work/School Release Form(ED)
[2017-12-22] MEDS ORDERED: DELTASONE PO ONE (02:28)
--- NOTE | 2017-12-22 03:33 | XRay Report ---
FINAL REPORT PROCEDURE: XR SPINE LUMBOSACRAL 2-3V TECHNIQUE: Lumbar spine radiographs, including AP, lateral, and lumbosacral spot views. CPT 74765 HISTORY: back pain COMPARISON: No prior studies are available for comparison. FINDINGS: Alignment: Normal. Vertebral body heights/Disk spaces: Normal. Fracture(s): None. Facets: Normal. Bone mineralization: Normal. IMPRESSION: Normal Examination.
[2017-12-22 04:00] VITALS: BP 104/62
== END 2017-12-22 04:00 | disposition home or self-care (01) ==
LOC: ED 00:39
DX: S39.012A Strain of muscle, fascia and tendon of lower back, initial encounter (principal); W18.39XA Other fall on same level, initial encounter; Y93.89 Activity, other specified; Y92.89 Other specified places as the place of occurrence of the external cause; Y99.8 Other external cause status; Z88.0 Allergy status to penicillin
CPT/HCPCS: 72100; 81001; 96372; 99284; J1885; J7512

== ENCOUNTER 2018-01-25 20:46 | Emergency (ER) | payer MEDICAID ==
[2018-01-25 21:18] VITALS: BP 127/83
[2018-01-25] MEDS ORDERED: NACL 0.9% 1000 ML 1,000 ML IV ONE (21:30)
[2018-01-25 21:49] LABS: Basophils % (Auto) 0.5 % (0.0-1.8); Eosinophils # (Auto) 0.1 K/mm3 (0.0-0.4); Hematocrit 42.1 % (30.3-42.9); Hemoglobin 14.1 gm/dl (10.1-14.3); Lymphocytes # (Auto) 3.4 K/mm3 (1.2-5.4); Lymphocytes % (Auto) 37.2 % (13.4-35.0); Mean Corpuscular HGB Conc 34 % (30-34); Mean Corpuscular Hemoglobin 30 pg (28-32); Mean Corpuscular Volume 88 fl (79-97); Monocytes # (Auto) 0.5 K/mm3 (0.0-0.8); Monocytes % (Auto) 5.7 % (0.0-7.3); Platelet Count 291 K/mm3 (140-440); Red Blood Count 4.77 M/mm3 (3.65-5.03); Red Cell Distribution Width 13.5 % (13.2-15.2)
[2018-01-25 21:52] LABS: Bilirubin,Urine NEG (Negative); Blood,Urine NEG (Negative); Color,Urine Yellow (Yellow); Mucus,Urine FEW /HPF; Protein,Urine <15 mg/dL mg/dL (Negative); Urobilinogen,Urine < 2.0 mg/dL (<2.0)
[2018-01-25 22:05] LABS: Alanine Aminotransferase 13 units/L (7-56); Albumin 4.4 g/dL (3.9-5); BUN/Creatinine Ratio 13; Blood Urea Nitrogen 10 mg/dL (7-17); Calcium 9.3 mg/dL (8.4-10.2); Hemolysis Index 5
[2018-01-25] MEDS ORDERED: ZOFRAN IV ONE (23:17)
[2018-01-25] MEDS ORDERED: TORADOL IV ONE (23:17)
--- NOTE | 2018-01-25 23:18 | Emergency Department Report ---
ED Abdominal Pain HPI - General Chief Complaint: Abdominal Pain Stated Complaint: HEADACHE,ABD PAIN,BACK PAIN Time Seen by Provider: 01/25/18 23:06 Source: patient Mode of arrival: Ambulatory Limitations: No Limitations - History of Present Illness Initial Comments: Patient is a 27-year-old -[place] female status post IUD removal 2 weeks ago presents today for abdominal pain bilateral lower quadrant pain states was treated Lortab by [employer] recommended follow with ED if pain persist states intermittent vaginal bleeding since IUD removal followed by [facility] /[employer] physician states on Percocet patient denies fever chills no nausea vomiting pain exacerbated by nothing pain relieved by rest MD Complaint: abdominal pain Onset/Timin -: month(s) Location: LLQ, RLQ Radiation: none Migration to: LLQ, RLQ, suprapubic Severity: moderate Severity scale (0 -10): 4 Quality: cramping, aching Consistency: intermittent Improves With: nothing Worsens With: bowel movement Associated Symptoms: diarrhea. denies: nausea, vomiting, fever, chills, constipation, dysuria, hematemesis, hematochezia, melena, hematuria, anorexia, syncope - Related Data LMP Date: 12/17/17 LMP (females 10-50): 1 month Home Medications Medication Instructions Recorded Confirmed Last Taken Vit-Fe Fumar-FA [ 1 tab PO QDAY 03/16/15 03/16/15 03/15/15 Vitamin] Previous Rx's Medication Instructions Recorded Last Taken Type Sulfamethoxazole/Trimethoprim 1 each PO BID #14 tablet 10/02/17 Unknown Rx [Bactrim DS TAB] traMADol [Ultram] 50 mg PO Q6HR PRN #15 tablet 10/02/17 Unknown Rx Acetaminophen/Codeine [Tylenol 1 tab PO Q6H PRN #12 tab 12/17/17 Unknown Rx /Codeine # 3 tab] Ibuprofen [Motrin] 600 mg PO Q8H PRN #15 tablet 12/17/17 Unknown Rx Nitrofurantoin Monohyd/M-Cryst 100 mg PO Q12H 5 Days #10 capsule 12/17/17 Unknown Rx [Macrobid 100 mg Capsule] HYDROcodone/ACETAMINOPHEN [[place] 1 each PO Q6H PRN 3 Days #12 tablet 12/20/17 Unknown Rx 7.5-325 Tablet] Promethazine [Phenergan TAB] 25 mg PO Q6HR PRN #10 tab 12/20/17 Unknown Rx Cyclobenzaprine [Flexeril] 10 mg PO BID PRN #14 tablet 12/22/17 Unknown Rx Ibuprofen [Motrin] 600 mg PO Q8H PRN #30 tablet 12/22/17 Unknown Rx Prednisone [predniSONE 10 mg 10 mg PO .TAPER #1 tab.ds.pk 12/22/17 Unknown Rx (6-Day Pack, 21 Tabs)] traMADol [Ultram] 50 mg PO Q6HR PRN #7 tablet 01/25/18 Unknown Rx Allergies Allergy/AdvReac Type Severity Reaction Status Date / Time Penicillins Allergy Rash Verified 12/22/17 01:13 ED Review of Systems ROS: Stated complaint: HEADACHE,ABD PAIN,BACK PAIN Other details as noted in HPI Constitutional: denies: chills, fever Eyes: denies: eye pain, eye discharge, vision change ENT: denies: ear pain, throat pain Respiratory: denies: cough, shortness of breath, wheezing Cardiovascular: denies: chest pain, palpitations Endocrine: no symptoms reported Gastrointestinal: denies: abdominal pain, nausea, diarrhea Genitourinary: denies: urgency, dysuria, discharge, abnormal menses, dyspareunia Musculoskeletal: denies: back pain, joint swelling, arthralgia Skin: denies: rash, lesions Neurological: as per HPI. denies: headache, weakness, paresthesias Psychiatric: denies: anxiety, depression Hematological/Lymphatic: denies: easy bleeding, easy bruising ED Past Medical Hx - Past Medical History Previous Medical History?: Yes Hx Heart Attack/AMI: No Hx Congestive Heart Failure: No Hx Diabetes: No Hx Deep Vein Thrombosis: No Hx Renal Disease: No Hx Sickle Cell Disease: No Hx Seizures: No Hx Asthma: No Hx COPD: No Hx HIV: No Additional medical history: hyperemesis gravidarium - Surgical History Past Surgical History?: No - Social History Smoking Status: Former Smoker Substance Use Type: Alcohol, Marijuana - Medications Home Medications: Home Medications Medication Instructions Recorded Confirmed Last Taken Type Vit-Fe Fumar-FA [ 1 tab PO QDAY 03/16/15 03/16/15 03/15/15 History Vitamin] Sulfamethoxazole/Trimethoprim 1 each PO BID #14 tablet 10/02/17 Unknown Rx [Bactrim DS TAB] traMADol [Ultram] 50 mg PO Q6HR PRN #15 tablet 10/02/17 Unknown Rx Acetaminophen/Codeine [Tylenol 1 tab PO Q6H PRN #12 tab 12/17/17 Unknown Rx /Codeine # 3 tab] Ibuprofen [Motrin] 600 mg PO Q8H PRN #15 tablet 12/17/17 Unknown Rx Nitrofurantoin Monohyd/M-Cryst 100 mg PO Q12H 5 Days #10 capsule 12/17/17 Unknown Rx [Macrobid 100 mg Capsule] HYDROcodone/ACETAMINOPHEN [[place] 1 each PO Q6H PRN 3 Days #12 tablet 12/20/17 Unknown Rx 7.5-325 Tablet] Promethazine [Phenergan TAB] 25 mg PO Q6HR PRN #10 tab 12/20/17 Unknown Rx Cyclobenzaprine [Flexeril] 10 mg PO BID PRN #14 tablet 12/22/17 Unknown Rx Ibuprofen [Motrin] 600 mg PO Q8H PRN #30 tablet 12/22/17 Unknown Rx Prednisone [predniSONE 10 mg 10 mg PO .TAPER #1 tab.ds.pk 12/22/17 Unknown Rx (6-Day Pack, 21 Tabs)] traMADol [Ultram] 50 mg PO Q6HR PRN #7 tablet 01/25/18 Unknown Rx ED Physical Exam - General Limitations: No Limitations General appearance: alert, in no apparent distress - Head Head exam: Present: atraumatic, normocephalic - Eye Eye exam: Present: normal appearance - ENT ENT exam: Present: mucous membranes moist - Neck Neck exam: Present: normal inspection - Respiratory Respiratory exam: Present: normal lung sounds bilaterally. Absent: respiratory distress - Cardiovascular Cardiovascular Exam: Present: regular rate, normal rhythm. Absent: systolic murmur, diastolic murmur, rubs, gallop - GI/Abdominal GI/Abdominal exam: Present: soft, normal bowel sounds - Rectal Rectal exam: Present: deferred - External exam: Present: normal external exam - Extremities Exam Extremities exam: Present: normal inspection - Back Exam Back exam: Present: normal inspection - Neurological Exam Neurological exam: Present: alert, oriented X3, CN II-XII intact, motor sensory deficit, reflexes normal - Psychiatric Psychiatric exam: Present: normal affect, normal mood - Skin Skin exam: Present: warm, dry, intact, normal color. Absent: rash ED Course Vital Signs 01/25/18 21:04 Temperature 99.3 F Pulse Rate 79 Respiratory 18 Rate Blood Pressure 127/83 O2 Sat by Pulse 100 Oximetry ED Medical Decision Making - Lab Data Result diagrams: 01/25/18 21:37 01/25/18 21:37 Laboratory Tests 01/25/18 01/25/18 01/25/18 21:30 21:37 21:37 WBC 9.3 RBC 4.77 Hgb 14.1 Hct 42.1 MCV 88 MCH 30 MCHC 34 RDW 13.5 Plt Count 291 Lymph % (Auto) 37.2 H [place] % (Auto) 5.7 Eos % (Auto) 1.0 Baso % (Auto) 0.5 Lymph # 3.4 [place] # 0.5 Eos # 0.1 Baso # 0.0 Seg Neutrophils % 55.6 Seg Neutrophils # 5.1 Sodium 139 Potassium 3.9 Chloride 103.3 Carbon Dioxide 23 Anion Gap 17 BUN 10 Creatinine 0.8 Estimated GFR > 60 BUN/Creatinine Ratio 13 Glucose 79 Calcium 9.3 Total Bilirubin 0.20 AST 20 ALT 13 Alkaline Phosphatase 70 Total Protein 7.9 Albumin 4.4 Albumin/Globulin Ratio 1.3 HCG, Qual Urine Color Yellow Urine Turbidity Clear Urine pH 5.0 Ur Specific [place] 1.015 Urine Protein <15 mg/dl Urine Glucose (UA) Neg Urine Ketones Neg Urine Blood Neg Urine Nitrite Neg Urine Bilirubin Neg Urine Urobilinogen < 2.0 Ur Leukocyte Esterase Tr Urine WBC (Auto) 3.0 Urine RBC (Auto) 3.0 U Epithel Cells (Auto) 1.0 Urine Mucus Few 01/25/18 21:37 WBC RBC Hgb Hct MCV MCH MCHC RDW Plt Count Lymph % (Auto) [place] % (Auto) Eos % (Auto) Baso % (Auto) Lymph # [place] # Eos # Baso # Seg Neutrophils % Seg Neutrophils # Sodium Potassium Chloride Carbon Dioxide Anion Gap BUN Creatinine Estimated GFR BUN/Creatinine Ratio Glucose Calcium Total Bilirubin AST ALT Alkaline Phosphatase Total Protein Albumin Albumin/Globulin Ratio HCG, Qual Negative Urine Color Urine Turbidity Urine pH Ur Specific [place] Urine Protein Urine Glucose (UA) Urine Ketones Urine Blood Urine Nitrite Urine Bilirubin Urine Urobilinogen Ur Leukocyte Esterase Urine WBC (Auto) Urine RBC (Auto) U Epithel Cells (Auto) Urine Mucus - EKG Data EKG shows normal: sinus rhythm Rate: normal - Medical Decision Making Patient improvement as given any D UA CMP CBC normal hCG negative plan Tylenol by mouth 3 times a day when necessary pain follow-up with [employer] WORKER in 2-3 days. Patient verbalizes understanding and agreement and will be DC'd in stable condition Critical care attestation.: If time is entered above; I have spent that time in minutes in the direct care of this critically ill patient, excluding procedure time. ED Disposition Clinical Impression: Abnormal uterine bleeding (AUB) Abdominal pain Qualifiers: Abdominal location: generalized Qualified Code(s): R10.84 - Generalized abdominal pain Disposition: DC-01 TO HOME OR SELFCARE Is pt being admited?: No Does the pt Need Aspirin: No Condition: Good Instructions: Abdominal Pain (ED), Levonorgestrel/Ethinyl Estradiol (By mouth) Additional Instructions: follow up with OBGYN [facility] call tomorrow to confirm appointment Prescriptions: traMADol [Ultram] 50 mg PO Q6HR PRN #7 tablet PRN Reason: Pain Referrals: XOCHITL HEREDIA MD [Primary Care Provider] - 3-5 Days Forms: Work/School Release Form(ED) Time of Disposition: 23:58
[2018-01-25] MEDS ORDERED: ZOFRAN ODT ONE (23:41)
[2018-01-25] MEDS ORDERED: ZOFRAN ODT PO ONE (23:49)
[2018-01-25] MEDS ORDERED: TORADOL IM ONE (23:49)
== END 2018-01-26 00:08 | disposition home or self-care (01) ==
LOC: ED 20:46
DX: N93.8 Other specified abnormal uterine and vaginal bleeding (principal); F12.10 Cannabis abuse, uncomplicated; Z87.891 Personal history of nicotine dependence; Z88.0 Allergy status to penicillin
CPT/HCPCS: 36415; 80053; 81001; 84703; 85025; 96372; 99283; J1885; Q0162

== ENCOUNTER 2018-12-08 20:37 | Emergency (ER) | payer MEDICAID ==
[2018-12-08 21:31] LABS: Basophils # (Auto) 0.1 K/mm3 (0.0-0.1); Basophils % (Auto) 0.6 % (0.0-1.8); Eosinophils % (Auto) 0.2 % (0.0-4.3); Hematocrit 39.9 % (30.3-42.9); Hemoglobin 13.4 gm/dl (10.1-14.3); Lymphocytes # (Auto) 1.7 K/mm3 (1.2-5.4); Lymphocytes % (Auto) 16.3 % (13.4-35.0); Mean Corpuscular HGB Conc 34 % (30-34); Mean Corpuscular Volume 89 fl (79-97); Monocytes # (Auto) 0.5 K/mm3 (0.0-0.8); Monocytes % (Auto) 4.4 % (0.0-7.3); Platelet Count 278 K/mm3 (140-440); Red Blood Count 4.49 M/mm3 (3.65-5.03); Red Cell Distribution Width 13.4 % (13.2-15.2)
[2018-12-08 22:44] LABS: BUN/Creatinine Ratio 10; Blood Urea Nitrogen 7 mg/dL (7-17); Calcium 9.5 mg/dL (8.4-10.2); Hemolysis Index 0
[2018-12-08 23:04] LABS: Bilirubin,Urine NEG (Negative); Blood,Urine NEG (Negative); Color,Urine Yellow (Yellow); Mucus,Urine 3+ /HPF; Urobilinogen,Urine < 2.0 mg/dL (<2.0)
--- NOTE | 2018-12-09 00:19 | Ultrasound Report ---
PROCEDURE: US OB <= 14 WEEKS FETUS TECHNIQUE: Transabdominal and endovaginal pelvic ultrasound HISTORY: abdominal pain COMPARISONS: No priors FINDINGS: There is a single viable intrauterine . The crown-rump length corresponds to a gestational age of 8 weeks and 2 days The heart rate is 166 bpm. The right ovary is normal in contour. Ovoid mildly hypoechoic structure within the right ovary most c onsistent with corpus luteum measuring approximately 2 cm. Left ovary normal in contour and echotexture. Trace fluid in the pelvic cul-de-sac. No subchorionic hemorrhage. IMPRESSION: Single viable intrauterine at approximately 8 weeks and 2 days of gestation. Corpus luteum in the right ovary. Trace fluid in the pelvic cul-de-sac. . This document is electronically signed by Bryan Grove MD., December 09 2018 12:18:25 AM ET
[2018-12-09] MEDS ORDERED: NACL 0.9% 1000 ML 1,000 ML IV ONE (00:30)
[2018-12-09] MEDS ORDERED: REGLAN IV ONE (00:30)
[2018-12-09] MEDS ORDERED: BENADRYL IV ONE (00:31)
--- NOTE | 2018-12-09 00:36 | Emergency Department Report ---
ED HPI - General Chief complaint: Abdominal Pain Stated complaint: ABDOMINAL PAIN/VOMITING Time Seen by Provider: 12/09/18 00:10 Source: patient Mode of arrival: Ambulatory Limitations: No Limitations - History of Present Illness Initial comments: Pt is a 28 yo female who presents to the ED with c/o suprapubic abd pain that began 2-3 days ago. she describes the pain as intermittent sharp, cramping. she has associated N/v for a week. The patient is currently . she states her LNMP was September 11, she has not yet seen OB. She states she has an appt with OB on December 20. She denies any vaginal bleeding, urinary sx, vaginal discharge, or diarrhea. she states she had a normal BM yesterday. she denies any PMHx. she is taking a vitamin. /P:1/A:0, she denies any complications during her first . - Related Data Home Medications Medication Instructions Recorded Confirmed Last Taken Vit-Fe Fumar-FA [ 1 tab PO QDAY 03/16/15 03/16/15 03/15/15 Vitamin] Previous Rx's Medication Instructions Recorded Last Taken Type Sulfamethoxazole/Trimethoprim 1 each PO BID #14 tablet 10/02/17 Unknown Rx [Bactrim DS TAB] traMADol [Ultram] 50 mg PO Q6HR PRN #15 tablet 10/02/17 Unknown Rx Acetaminophen/Codeine [Tylenol 1 tab PO Q6H PRN #12 tab 12/17/17 Unknown Rx /Codeine # 3 tab] Ibuprofen [Motrin] 600 mg PO Q8H PRN #15 tablet 12/17/17 Unknown Rx Nitrofurantoin Monohyd/M-Cryst 100 mg PO Q12H 5 Days #10 capsule 12/17/17 Unknown Rx [Macrobid 100 mg Capsule] HYDROcodone/ACETAMINOPHEN [[place] 1 each PO Q6H PRN 3 Days #12 tablet 12/20/17 Unknown Rx 7.5-325 Tablet] Promethazine [Phenergan] 25 mg PO Q6HR PRN #10 tab 12/20/17 Unknown Rx Cyclobenzaprine [Flexeril] 10 mg PO BID PRN #14 tablet 12/22/17 Unknown Rx Ibuprofen [Motrin] 600 mg PO Q8H PRN #30 tablet 12/22/17 Unknown Rx Prednisone [predniSONE 10 mg 10 mg PO .TAPER #1 tab.ds.pk 12/22/17 Unknown Rx (6-Day Pack, 21 Tabs)] traMADol [Ultram] 50 mg PO Q6HR PRN #7 tablet 01/25/18 Unknown Rx Doxylamine Succinate [Unisom] 25 mg PO DAILY PRN #14 tablet 12/09/18 Unknown Rx Pyridoxine HCl (Vitamin B6) 25 mg PO DAILY PRN #14 tablet 12/09/18 Unknown Rx [Vitamin B-6 25MG TAB] Allergies Allergy/AdvReac Type Severity Reaction Status Date / Time Penicillins Allergy Rash Verified 12/22/17 01:13 ED Review of Systems ROS: Stated complaint: ABDOMINAL PAIN/VOMITING Other details as noted in HPI Comment: All other systems reviewed and negative ED Past Medical Hx - Past Medical History Previous Medical History?: Yes Hx Heart Attack/AMI: No Hx Congestive Heart Failure: No Hx Diabetes: No Hx Deep Vein Thrombosis: No Hx Renal Disease: No Hx Sickle Cell Disease: No Hx Seizures: No Hx Asthma: No Hx COPD: No Hx HIV: No Additional medical history: hyperemesis gravidarium - Surgical History Past Surgical History?: Yes - Social History Smoking Status: Former Smoker Substance Use Type: None - Medications Home Medications: Home Medications Medication Instructions Recorded Confirmed Last Taken Type Vit-Fe Fumar-FA [ 1 tab PO QDAY 03/16/15 03/16/15 03/15/15 History Vitamin] Sulfamethoxazole/Trimethoprim 1 each PO BID #14 tablet 10/02/17 Unknown Rx [Bactrim DS TAB] traMADol [Ultram] 50 mg PO Q6HR PRN #15 tablet 10/02/17 Unknown Rx Acetaminophen/Codeine [Tylenol 1 tab PO Q6H PRN #12 tab 12/17/17 Unknown Rx /Codeine # 3 tab] Ibuprofen [Motrin] 600 mg PO Q8H PRN #15 tablet 12/17/17 Unknown Rx Nitrofurantoin Monohyd/M-Cryst 100 mg PO Q12H 5 Days #10 capsule 12/17/17 Unknown Rx [Macrobid 100 mg Capsule] HYDROcodone/ACETAMINOPHEN [[place] 1 each PO Q6H PRN 3 Days #12 tablet 12/20/17 Unknown Rx 7.5-325 Tablet] Promethazine [Phenergan] 25 mg PO Q6HR PRN #10 tab 12/20/17 Unknown Rx Cyclobenzaprine [Flexeril] 10 mg PO BID PRN #14 tablet 12/22/17 Unknown Rx Ibuprofen [Motrin] 600 mg PO Q8H PRN #30 tablet 12/22/17 Unknown Rx Prednisone [predniSONE 10 mg 10 mg PO .TAPER #1 tab.ds.pk 12/22/17 Unknown Rx (6-Day Pack, 21 Tabs)] traMADol [Ultram] 50 mg PO Q6HR PRN #7 tablet 01/25/18 Unknown Rx Doxylamine Succinate [Unisom] 25 mg PO DAILY PRN #14 tablet 12/09/18 Unknown Rx Pyridoxine HCl (Vitamin B6) 25 mg PO DAILY PRN #14 tablet 12/09/18 Unknown Rx [Vitamin B-6 25MG TAB] ED Physical Exam - General Limitations: No Limitations General appearance: alert, in no apparent distress - Head Head exam: Present: atraumatic, normocephalic - Eye Eye exam: Present: normal appearance, PERRL - ENT ENT exam: Present: mucous membranes dry (mildly ) - Respiratory Respiratory exam: Present: normal lung sounds bilaterally. Absent: respiratory distress, wheezes, rales, rhonchi, stridor, chest wall tenderness, accessory muscle use, decreased breath sounds, prolonged expiratory - Cardiovascular Cardiovascular Exam: Present: regular rate, normal rhythm, normal heart sounds. Absent: systolic murmur, diastolic murmur, rubs, gallop - GI/Abdominal GI/Abdominal exam: Present: soft, normal bowel sounds, other (gravid ). Absent: tenderness, guarding, rebound, rigid - Back Exam Back exam: Absent: CVA tenderness (R), CVA tenderness (L) - Neurological Exam Neurological exam: Present: alert, oriented X3 - Psychiatric Psychiatric exam: Present: normal affect, normal mood - Skin Skin exam: Present: warm, dry, intact ED Course Vital Signs 12/08/18 12/09/18 20:45 01:42 Temperature 98.6 F 98.6 F Pulse Rate 80 79 Respiratory 18 16 Rate Blood Pressure 111/66 Blood Pressure 125/74 [Right] O2 Sat by Pulse 98 99 Oximetry ED Medical Decision Making - Lab Data Result diagrams: 12/08/18 21:18 12/08/18 21:18 Lab Results 12/08/18 12/08/18 12/08/18 Range/Units 21:18 21:18 21:18 WBC 10.2 (4.5-11.0) K/mm3 RBC 4.49 (3.65-5.03) M/mm3 Hgb 13.4 (10.1-14.3) gm/dl Hct 39.9 (30.3-42.9) % MCV 89 (79-97) fl MCH 30 (28-32) pg MCHC 34 (30-34) % RDW 13.4 (13.2-15.2) % Plt Count 278 (140-440) K/mm3 Lymph % (Auto) 16.3 (13.4-35.0) % [place] % (Auto) 4.4 (0.0-7.3) % Eos % (Auto) 0.2 (0.0-4.3) % Baso % (Auto) 0.6 (0.0-1.8) % Lymph # 1.7 (1.2-5.4) K/mm3 [place] # 0.5 (0.0-0.8) K/mm3 Eos # 0.0 (0.0-0.4) K/mm3 Baso # 0.1 (0.0-0.1) K/mm3 Seg Neutrophils % 78.5 H (40.0-70.0) % Seg Neutrophils # 8.0 H (1.8-7.7) K/mm3 Sodium (137-145) mmol/L Potassium (3.6-5.0) mmol/L Chloride (98-107) mmol/L Carbon Dioxide (22-30) mmol/L Anion Gap mmol/L BUN (7-17) mg/dL Creatinine (0.7-1.2) mg/dL Estimated GFR ml/min BUN/Creatinine Ratio % Glucose (65-100) mg/dL Calcium (8.4-10.2) mg/dL HCG, Quant 68000 H (0-4) mIU/mL Urine Color (Yellow) Urine Turbidity (Clear) Urine pH (5.0-7.0) Ur Specific [place] (1.003-1.030) Urine Protein (Negative) mg/dL Urine Glucose (UA) (Negative) mg/dL Urine Ketones (Negative) mg/dL Urine Blood (Negative) Urine Nitrite (Negative) Urine Bilirubin (Negative) Urine Urobilinogen (<2.0) mg/dL Ur Leukocyte Esterase (Negative) Urine WBC (Auto) (0.0-6.0) /HPF Urine RBC (Auto) (0.0-6.0) /HPF U Epithel Cells (Auto) (0-13.0) /HPF Urine Mucus /HPF Blood Type O POSITIVE 12/08/18 12/08/18 Range/Units 21:18 22:23 WBC (4.5-11.0) K/mm3 RBC (3.65-5.03) M/mm3 Hgb (10.1-14.3) gm/dl Hct (30.3-42.9) % MCV (79-97) fl MCH (28-32) pg MCHC (30-34) % RDW (13.2-15.2) % Plt Count (140-440) K/mm3 Lymph % (Auto) (13.4-35.0) % [place] % (Auto) (0.0-7.3) % Eos % (Auto) (0.0-4.3) % Baso % (Auto) (0.0-1.8) % Lymph # (1.2-5.4) K/mm3 [place] # (0.0-0.8) K/mm3 Eos # (0.0-0.4) K/mm3 Baso # (0.0-0.1) K/mm3 Seg Neutrophils % (40.0-70.0) % Seg Neutrophils # (1.8-7.7) K/mm3 Sodium 136 L (137-145) mmol/L Potassium 3.7 (3.6-5.0) mmol/L Chloride 100.5 (98-107) mmol/L Carbon Dioxide 22 (22-30) mmol/L Anion Gap 17 mmol/L BUN 7 (7-17) mg/dL Creatinine 0.7 (0.7-1.2) mg/dL Estimated GFR > 60 ml/min BUN/Creatinine Ratio 10 % Glucose 80 (65-100) mg/dL Calcium 9.5 (8.4-10.2) mg/dL HCG, Quant (0-4) mIU/mL Urine Color Yellow (Yellow) Urine Turbidity Slightly-cloudy (Clear) Urine pH 5.0 (5.0-7.0) Ur Specific [place] 1.031 H (1.003-1.030) Urine Protein 30 mg/dl (Negative) mg/dL Urine Glucose (UA) Neg (Negative) mg/dL Urine Ketones 80 (Negative) mg/dL Urine Blood Neg (Negative) Urine Nitrite Neg (Negative) Urine Bilirubin Neg (Negative) Urine Urobilinogen < 2.0 (<2.0) mg/dL Ur Leukocyte Esterase Neg (Negative) Urine WBC (Auto) 3.0 (0.0-6.0) /HPF Urine RBC (Auto) 1.0 (0.0-6.0) /HPF U Epithel Cells (Auto) 9.0 (0-13.0) /HPF Urine Mucus 3+ /HPF Blood Type - Radiology Data Radiology results: report reviewed PROCEDURE: US OB <= 14 WEEKS FETUS TECHNIQUE: Transabdominal and endovaginal pelvic ultrasound HISTORY: abdominal pain COMPARISONS: No priors FINDINGS: There is a single viable intrauterine . The crown-rump length corresponds to a gestational age of 8 weeks and 2 days The heart rate is 166 bpm. The right ovary is normal in contour. Ovoid mildly hypoechoic structure within the right ovary most consistent with corpus luteum measuring approximately 2 cm. Left ovary normal in contour and echotexture. Trace fluid in the pelvic cul-de-sac. No subchorionic hemorrhage. IMPRESSION: Single viable intrauterine at approximately 8 weeks and 2 days of gestation. Corpus luteum in the right ovary. Trace fluid in the pelvic cul-de-sac. . This document is electronically signed by Bryan Grove MD., December 09 2018 12:18:25 AM ET Transcribed By: CODY Dictated By: BRYAN GROVE MD Electronically Authenticated By: BRYAN GROVE MD Signed Date/Time: 12/09/18 0019 - Medical Decision Making Pt is a 28 yo female who presents to the ED with c/o suprapubic abd pain that began 2-3 days ago. she describes the pain as intermittent sharp, cramping. she has associated N/v for a week. The patient is currently . she states her LNMP was September 11, she has not yet seen OB. She states she has an appt with OB on December 20. She denies any vaginal bleeding, urinary sx, vaginal discharge, or diarrhea. she states she had a normal BM yesterday. she denies any PMHx. she is taking a vitamin. /P:1/A:0, she denies any complications during her first . no abd tenderness on exam. pt has mildly dry mucus membranes. vitals are normal. pt given 1L of IVF, reglan, and benadryl. UA with no signs of infection, ketones are mildly elevated. labs WNL. US shows Single viable intrauterine at approximately 8 weeks and 2 days of gestation. Corpus luteum in the right ovary. Trace fluid in the pelvic cul-de-sac. pt given vitamin B6 and unisom for N/V. advised to please take the two medications together as prescribed. please drink plenty of fluids at home. 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 return to the emergency room for any new or worsening symptoms. Critical care attestation.: If time is entered above; I have spent that time in minutes in the direct care of this critically ill patient, excluding procedure time. ED Disposition Clinical Impression: Qualifiers: Weeks of gestation: 8 weeks Qualified Code(s): Z3A.08 - 8 weeks gestation of Abdominal pain Qualifiers: Abdominal location: lower abdomen, unspecified Qualified Code(s): R10.30 - Lower abdominal pain, unspecified Nausea and vomiting Qualifiers: Vomiting type: unspecified Vomiting Intractability: non-intractable Qualified Code(s): R11.2 - Nausea with vomiting, unspecified Disposition: DC-01 TO HOME OR SELFCARE Is pt being admited?: No Does the pt Need Aspirin: No Condition: Stable Instructions: Morning Sickness (ED), (ED) Additional Instructions: please take the two medications together as prescribed. please drink plenty of fluids at home. 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 return to the emergency room for any new or worsening symptoms. Prescriptions: Doxylamine Succinate [Unisom] 25 mg PO DAILY PRN #14 tablet PRN Reason: Nausea And Vomiting Pyridoxine HCl (Vitamin B6) [Vitamin B-6 25MG TAB] 25 mg PO DAILY PRN #14 tablet PRN Reason: Nausea And Vomiting Referrals: JAYLA PATEL MD [Primary Care Provider] - 2-3 Days [facility] [Provider Group] - 2-3 Days JHONNY RENDON MD [Staff Physician] - 2-3 Days Forms: Accompanied Note, Work/School Release Form(ED) Time of Disposition: 02:30 Print Language: NEPALI
[2018-12-09 01:43] VITALS: BP 125/74
== END 2018-12-09 03:36 | disposition home or self-care (01) ==
LOC: ED 20:37
DX: O21.8 Other vomiting complicating pregnancy (principal); O26.891 Other specified pregnancy related conditions, first trimester; R10.30 Lower abdominal pain, unspecified; Z3A.08 8 weeks gestation of pregnancy; Z87.891 Personal history of nicotine dependence; Z79.899 Other long term (current) drug therapy; Z88.0 Allergy status to penicillin
CPT/HCPCS: 36415; 76801; 76817; 80048; 81001; 84702; 85025; 86900; 86901; 96361; 96374; 96375; 99284; J1200; J2765; J7030

== ENCOUNTER 2019-01-01 18:40 | Emergency (ER) | payer MEDICAID ==
--- NOTE | 2019-01-01 19:42 | Event Note ---
ED Screening Note Date of service: 01/01/19 Time: 19:39 ED Screening Note: 28 YO female presents to Ed with nausea at 12 weeks gestation recieves pnc at [facility] no vaginal bleed or abd pain This initial assessment/diagnostic orders/clinical plan/treatment(s) is/are subject to change based on patients health status, clinical progression and re- assessment by fellow clinical providers in the ED. Further treatment and workup at subsequent clinical providers discretion. Patient/guardian urged not to elope from the ED as their condition may be serious if not clinically assessed and managed. Initial orders include: ua, upt reglan
[2019-01-01 19:46] VITALS: BP 108/75
[2019-01-01 20:13] LABS: HCG Qualitative,Urine Positive (Negative)
[2019-01-01 20:18] LABS: Bilirubin,Urine NEG (Negative); Blood,Urine NEG (Negative); Color,Urine Amber (Yellow); Mucus,Urine 3+ /HPF; Urobilinogen,Urine < 2.0 mg/dL (<2.0)
[2019-01-01] MEDS ORDERED: NACL 0.9% 1000 ML 1,000 ML IV ONE (22:19)
[2019-01-01] MEDS ORDERED: REGLAN IV ONE (22:20)
[2019-01-01] MEDS ORDERED: PEPCID IV ONE (22:20)
--- NOTE | 2019-01-01 22:56 | Emergency Department Report ---
ED N/V/D HPI - General Chief complaint: Nausea/Vomiting/Diarrhea Stated complaint: NAUSEA/VOMITING Time Seen by Provider: 01/01/19 19:39 Source: patient Mode of arrival: Ambulatory Limitations: No Limitations - History of Present Illness Initial comments: Patient is a A0 28-year-old -[place] female with no past medical history who is approximately 12 weeks gestation and presents to the ED via EMS with complaint of acute onset persistent nausea and vomiting intermittently for the last 20 hours. Patient states that she has had multiple vomiting episodes and has not been able to keep anything down in the last 20 hours. Patient denies abdominal pain, vaginal bleeding, dysuria, urinary frequency and urgency, dizziness, chest pain, shortness of breath, fever, chills, sore throat, headache, syncope, cough or vaginal discharge. MD complaint: nausea, vomiting -: Sudden, hour(s) (20) Description of Vomiting: food contents, watery, bilious Description of Diarrhea: other (No diarrhea) Associated Abdominal Pain: No Location: diffuse Radiation: none Severity: moderate Pain Scale: 6 Quality: dull Consistency: intermittent Improves with: none Worsens with: none Context: other (12 WEEKS GESTATION) Associated Symptoms: denies other symptoms, nausea/vomiting. denies: myalgias, chest pain, cough, diaphoresis, fever/chills, headaches, loss of appetite, malaise, rash, dysuria, shortness of breath, syncope, weakness - Related Data Home Medications Medication Instructions Recorded Confirmed Last Taken Vit-Fe Fumar-FA [ 1 tab PO QDAY 03/16/15 03/16/15 03/15/15 Vitamin] Previous Rx's Medication Instructions Recorded Last Taken Type Sulfamethoxazole/Trimethoprim 1 each PO BID #14 tablet 10/02/17 Unknown Rx [Bactrim DS TAB] traMADol [Ultram] 50 mg PO Q6HR PRN #15 tablet 10/02/17 Unknown Rx Acetaminophen/Codeine [Tylenol 1 tab PO Q6H PRN #12 tab 12/17/17 Unknown Rx /Codeine # 3 tab] Ibuprofen [Motrin] 600 mg PO Q8H PRN #15 tablet 12/17/17 Unknown Rx Nitrofurantoin Monohyd/M-Cryst 100 mg PO Q12H 5 Days #10 capsule 12/17/17 Unknown Rx [Macrobid 100 mg Capsule] HYDROcodone/ACETAMINOPHEN [Pheba 1 each PO Q6H PRN 3 Days #12 tablet 12/20/17 Unknown Rx 7.5-325 Tablet] Promethazine [Phenergan] 25 mg PO Q6HR PRN #10 tab 12/20/17 Unknown Rx Cyclobenzaprine [Flexeril] 10 mg PO BID PRN #14 tablet 12/22/17 Unknown Rx Ibuprofen [Motrin] 600 mg PO Q8H PRN #30 tablet 12/22/17 Unknown Rx Prednisone [predniSONE 10 mg 10 mg PO .TAPER #1 tab.ds.pk 12/22/17 Unknown Rx (6-Day Pack, 21 Tabs)] traMADol [Ultram] 50 mg PO Q6HR PRN #7 tablet 01/25/18 Unknown Rx Doxylamine Succinate [Unisom] 25 mg PO DAILY PRN #14 tablet 12/09/18 Unknown Rx Pyridoxine HCl (Vitamin B6) 25 mg PO DAILY PRN #14 tablet 12/09/18 Unknown Rx [Vitamin B-6 25MG TAB] Allergies Allergy/AdvReac Type Severity Reaction Status Date / Time Penicillins Allergy Rash Verified 12/22/17 01:13 ED Review of Systems ROS: Stated complaint: NAUSEA/VOMITING Other details as noted in HPI Constitutional: denies: chills, fever Eyes: denies: eye pain, eye discharge, vision change ENT: denies: ear pain, throat pain Respiratory: denies: cough, shortness of breath, wheezing Cardiovascular: denies: chest pain, palpitations Endocrine: no symptoms reported Gastrointestinal: nausea, vomiting. denies: abdominal pain, diarrhea Genitourinary: denies: urgency, dysuria, discharge Musculoskeletal: denies: back pain, joint swelling, arthralgia Skin: denies: rash, lesions Neurological: denies: headache, weakness, paresthesias Psychiatric: denies: anxiety, depression Hematological/Lymphatic: denies: easy bleeding, easy bruising ED Past Medical Hx - Past Medical History Previous Medical History?: Yes Hx Heart Attack/AMI: No Hx Congestive Heart Failure: No Hx Diabetes: No Hx Deep Vein Thrombosis: No Hx Renal Disease: No Hx Sickle Cell Disease: No Hx Seizures: No Hx Asthma: No Hx COPD: No Hx HIV: No Additional medical history: hyperemesis gravidarium - Surgical History Past Surgical History?: No - Social History Smoking Status: Former Smoker Substance Use Type: None - Medications Home Medications: Home Medications Medication Instructions Recorded Confirmed Last Taken Type Vit-Fe Fumar-FA [ 1 tab PO QDAY 03/16/15 03/16/15 03/15/15 History Vitamin] Sulfamethoxazole/Trimethoprim 1 each PO BID #14 tablet 10/02/17 Unknown Rx [Bactrim DS TAB] traMADol [Ultram] 50 mg PO Q6HR PRN #15 tablet 10/02/17 Unknown Rx Acetaminophen/Codeine [Tylenol 1 tab PO Q6H PRN #12 tab 12/17/17 Unknown Rx /Codeine # 3 tab] Ibuprofen [Motrin] 600 mg PO Q8H PRN #15 tablet 12/17/17 Unknown Rx Nitrofurantoin Monohyd/M-Cryst 100 mg PO Q12H 5 Days #10 capsule 12/17/17 Unknown Rx [Macrobid 100 mg Capsule] HYDROcodone/ACETAMINOPHEN [Pheba 1 each PO Q6H PRN 3 Days #12 tablet 12/20/17 Unknown Rx 7.5-325 Tablet] Promethazine [Phenergan] 25 mg PO Q6HR PRN #10 tab 12/20/17 Unknown Rx Cyclobenzaprine [Flexeril] 10 mg PO BID PRN #14 tablet 12/22/17 Unknown Rx Ibuprofen [Motrin] 600 mg PO Q8H PRN #30 tablet 12/22/17 Unknown Rx Prednisone [predniSONE 10 mg 10 mg PO .TAPER #1 tab.ds.pk 12/22/17 Unknown Rx (6-Day Pack, 21 Tabs)] traMADol [Ultram] 50 mg PO Q6HR PRN #7 tablet 01/25/18 Unknown Rx Doxylamine Succinate [Unisom] 25 mg PO DAILY PRN #14 tablet 12/09/18 Unknown Rx Pyridoxine HCl (Vitamin B6) 25 mg PO DAILY PRN #14 tablet 12/09/18 Unknown Rx [Vitamin B-6 25MG TAB] ED Physical Exam - General Limitations: No Limitations General appearance: alert, in no apparent distress - Head Head exam: Present: atraumatic, normocephalic, normal inspection - Eye Eye exam: Present: normal appearance, PERRL, EOMI Pupils: Present: normal accommodation - ENT ENT exam: Present: normal exam, normal orophraynx, mucous membranes moist, TM's normal bilaterally, normal external ear exam - Neck Neck exam: Present: normal inspection, full ROM - Respiratory Respiratory exam: Present: normal lung sounds bilaterally. Absent: respiratory distress, wheezes, rales, rhonchi, chest wall tenderness, accessory muscle use, decreased breath sounds, prolonged expiratory - Cardiovascular Cardiovascular Exam: Present: regular rate, normal rhythm, normal heart sounds. Absent: systolic murmur, diastolic murmur, rubs, gallop - GI/Abdominal GI/Abdominal exam: Present: soft, normal bowel sounds. Absent: tenderness, guarding, rebound, hyperactive bowel sounds, hypoactive bowel sounds, organomegaly - Rectal Rectal exam: Present: deferred - Extremities Exam Extremities exam: Present: normal inspection, full ROM, normal capillary refill - Back Exam Back exam: Present: normal inspection, full ROM. Absent: CVA tenderness (L), muscle spasm - Neurological Exam Neurological exam: Present: alert, oriented X3, CN II-XII intact, normal gait, reflexes normal - Psychiatric Psychiatric exam: Present: normal affect, normal mood - Skin Skin exam: Present: warm, dry, intact, normal color. Absent: rash ED Course Vital Signs 01/01/19 19:39 Temperature 98.3 F Pulse Rate 85 Respiratory 18 Rate Blood Pressure 108/75 O2 Sat by Pulse 100 Oximetry - Reevaluation(s) Reevaluation #1: 01/01/19 23:14 Patient is alert and oriented x 3 and is in no acute distress. Patient treated for nausea and vomiting and given normal saline 1 L IV x 1. Patient however decided to leave AMA from the ED. ED Medical Decision Making - Medical Decision Making Patient is alert and oriented x 3 and is in no acute distress. Patient treated for nausea and vomiting and given normal saline 1 L IV x 1. Patient however decided to leave AMA from the ED. - Differential Diagnosis Nausea and vomiting; ; hyperemesis gravidarum Critical care attestation.: If time is entered above; I have spent that time in minutes in the direct care of this critically ill patient, excluding procedure time. ED Disposition Clinical Impression: Nausea and vomiting during prior to 22 weeks gestation Disposition: - LEFT AGAINST MED ADVICE Is pt being admited?: No Does the pt Need Aspirin: No Condition: Stable Referrals: JAYLA PATEL MD [Primary Care Provider] - 3-5 Days Forms: AMA Form Time of Disposition: 22:50 Print Language: KAZAKH
== END 2019-01-01 23:00 | disposition left against medical advice (07) ==
LOC: ED 18:40
DX: O21.8 Other vomiting complicating pregnancy (principal); Z87.891 Personal history of nicotine dependence; Z79.899 Other long term (current) drug therapy; Z88.0 Allergy status to penicillin; Z3A.12 12 weeks gestation of pregnancy
CPT/HCPCS: 81001; 81025; 99283

== ENCOUNTER 2019-06-15 04:36 | Outpatient (CLI) | payer MEDICAID ==
[2019-06-15 05:21] VITALS: BP 106/63
[2019-06-15] MEDS ORDERED: LACTATED RINGERS 1,000 ML ONE (05:42)
[2019-06-15] MEDS ORDERED: LACTATED RINGERS 1,000 ML IV ONE (05:55)
[2019-06-15 07:00] LABS: Color,Urine Yellow (Yellow)
[2019-06-15 07:01] LABS: Bilirubin,Urine NEG (Negative); Blood,Urine NEG (Negative); Mucus,Urine 2+ /HPF; Urobilinogen,Urine < 2.0 mg/dL (<2.0)
[2019-06-15 07:17] LABS: Amphetamine Screen,Urine PRESUMPTIVE NEGATIVE; Benzodiazepines Screen,Urine PRESUMPTIVE NEGATIVE; Cocaine Screen,Urine PRESUMPTIVE NEGATIVE; Methadone Screen,Urine PRESUMPTIVE NEGATIVE; Opiate Screen,Urine PRESUMPTIVE NEGATIVE
[2019-06-15 08:43] LABS: Cannabinoid Screen,Urine PRESUMPTIVE POSITIVE
--- NOTE | 2019-06-15 08:47 | Ultrasound Report ---
Limited obstetrical ultrasound and biophysical profile. 06/15/2019. HISTORY: Decreased movement. FINDINGS: A single viable intrauterine has heart tones at 143 bpm. position is cephalic. The placenta is posteriorly located. Amniotic fluid index is 12.2 cm. biophysical profile is 8/8. IMPRESSION: 1. Normal biophysical profile of 8/8. 2. Single viable intrauterine in the cephalic position. Signer Name: Audie Gonzales MD Signed: 06/15/2019 8:43 AM Workstation Name: [id number]
== END 2019-06-15 10:17 | disposition home or self-care (01) ==
LOC: TRG 04:36
PROVIDERS: ATTEND Obstetrics & Gynecology
DX: O62.9 Abnormality of forces of labor, unspecified (principal); O36.8130 Decreased fetal movements, third trimester, not applicable or unspecified; Z3A.35 35 weeks gestation of pregnancy; Z87.891 Personal history of nicotine dependence
CPT/HCPCS: 76815; 76819; 80307; 81001; 96360; J7120

== ENCOUNTER 2021-03-23 11:53 | Emergency (ER) | payer MEDICAID ==
[2021-03-23] MEDS ORDERED: METOCLOPRAMIDE 10 MG/2 ML INJ IV ONE (12:18)
[2021-03-23] MEDS ORDERED: diphenhydrAMINE 50 MG/ML VIAL IV ONE (12:18)
[2021-03-23] MEDS ORDERED: LACTATED RINGERS 1,000 ML IV ONE ×2 (12:18→12:34)
[2021-03-23 12:22] VITALS: BP 133/84
[2021-03-23 13:07] LABS: Basophils % (Auto) 0.3 % (0.0-1.8); Eosinophils % (Auto) 0.5 % (0.0-4.3); Hematocrit 39.8 % (30.3-42.9); Hemoglobin 13.4 gm/dl (10.1-14.3); Lymphocytes # (Auto) 1.5 K/mm3 (1.2-5.4); Lymphocytes % (Auto) 17.2 % (13.4-35.0); Mean Corpuscular HGB Conc 34 % (30-34); Mean Corpuscular Volume 88 fl (79-97); Monocytes # (Auto) 0.3 K/mm3 (0.0-0.8); Monocytes % (Auto) 3.6 % (0.0-7.3); Platelet Count 252 K/mm3 (140-440); Red Blood Count 4.52 M/mm3 (3.65-5.03); Red Cell Distribution Width 13.6 % (13.2-15.2)
--- NOTE | 2021-03-23 13:23 | Emergency Department Report ---
ED General Adult HPI - General Chief complaint: Nausea/Vomiting/Diarrhea Stated complaint: VOMITTING 2 DAYS Time Seen by Provider: 03/23/21 12:17 Source: patient Mode of arrival: Ambulatory Limitations: No Limitations - History of Present Illness Initial comments: 30-year-old -German female patient presents with complaints of nausea vomiting in for 3 days. She states she is 12 weeks and currently following with [facility]. Patient has a history of hyperemesis gravidarum with her prior pregnancies that is difficult to control. She states she has tried Diclegis, Zofran, and Phenergan suppositories without improvement. She denies any abdominal pain, vaginal bleeding, hematemesis/coffee-ground emesis, chest pain, cough, shortness of breath, or fever/chills/sweats. No other past medical history per patient. - Related Data Home Medications Medication Instructions Recorded Confirmed Last Taken Vit-Fe Fumar-FA [ 1 tab PO QDAY 03/16/15 07/23/19 06/26/19 Vitamin] Previous Rx's Medication Instructions Recorded Last Taken Type Metoclopramide [Reglan] 10 mg PO TID PRN #30 tab 03/23/21 Unknown Rx diphenhydrAMINE [Benadryl CAP] 25 mg PO Q8HR PRN #30 capsule 03/23/21 Unknown Rx Allergies Allergy/AdvReac Type Severity Reaction Status Date / Time Penicillins Allergy Rash Verified 12/22/17 01:13 ED Review of Systems ROS: Stated complaint: VOMITTING 2 DAYS Other details as noted in HPI Constitutional: denies: diaphoresis, fever, malaise, weakness Respiratory: denies: cough, shortness of breath Cardiovascular: denies: chest pain Gastrointestinal: nausea, vomiting. denies: abdominal pain, diarrhea, constipation, hematemesis, melena, hematochezia Genitourinary: denies: urgency, dysuria, frequency, hematuria, discharge, abnormal menses Musculoskeletal: denies: back pain Neurological: denies: headache ED Past Medical Hx - Past Medical History Hx Hypertension: No Hx Heart Attack/AMI: No Hx Congestive Heart Failure: No Hx Diabetes: No Hx Deep Vein Thrombosis: No Hx Renal Disease: No Hx Sickle Cell Disease: No Hx Seizures: No Hx Asthma: No Hx COPD: No Hx HIV: No Additional medical history: hyperemesis gravidarium - Social History Smoking Status: Former Smoker - Medications Home Medications: Home Medications Medication Instructions Recorded Confirmed Last Taken Type Vit-Fe Fumar-FA [ 1 tab PO QDAY 03/16/15 07/23/19 06/26/19 History Vitamin] Metoclopramide [Reglan] 10 mg PO TID PRN #30 tab 03/23/21 Unknown Rx diphenhydrAMINE [Benadryl CAP] 25 mg PO Q8HR PRN #30 capsule 03/23/21 Unknown R x ED Physical Exam - General Limitations: No Limitations General appearance: alert, in no apparent distress - Head Head exam: Present: atraumatic, normocephalic - Eye Eye exam: Present: normal appearance. Absent: scleral icterus - Respiratory Respiratory exam: Present: normal lung sounds bilaterally. Absent: respiratory distress - Cardiovascular Cardiovascular Exam: Present: regular rate, normal rhythm - GI/Abdominal GI/Abdominal exam: Present: normal bowel sounds. Absent: soft, distended, tenderness, guarding, rebound, rigid - Neurological Exam Neurological exam: Present: alert, oriented X3 - Psychiatric Psychiatric exam: Present: normal affect, normal mood - Skin Skin exam: Present: warm, dry, intact, normal color. Absent: rash, cyanosis, diaphoretic ED Course Vital Signs 03/23/21 12:21 Temperature 98.6 F Pulse Rate 72 Respiratory 16 Rate Blood Pressure 133/84 O2 Sat by Pulse 98 Oximetry ED Medical Decision Making - Lab Data Result diagrams: 03/23/21 12:18 03/23/21 12:18 Lab Results 03/23/21 03/23/21 Range/Units 12:18 12:18 WBC 8.7 (4.5-11.0) K/mm3 RBC 4.52 (3.65-5.03) M/mm3 Hgb 13.4 (10.1-14.3) gm/dl Hct 39.8 (30.3-42.9) % MCV 88 (79-97) fl MCH 30 (28-32) pg MCHC 34 (30-34) % RDW 13.6 (13.2-15.2) % Plt Count 252 (140-440) K/mm3 Lymph % (Auto) 17.2 (13.4-35.0) % Benson % (Auto) 3.6 (0.0-7.3) % Eos % (Auto) 0.5 (0.0-4.3) % Baso % (Auto) 0.3 (0.0-1.8) % Lymph # (Auto) 1.5 (1.2-5.4) K/mm3 Benson # (Auto) 0.3 (0.0-0.8) K/mm3 Eos # (Auto) 0.0 (0.0-0.4) K/mm3 Baso # (Auto) 0.0 (0.0-0.1) K/mm3 Seg Neutrophils % 78.4 H (40.0-70.0) % Seg Neutrophils # 6.8 (1.8-7.7) K/mm3 Sodium 135 L (137-145) mmol/L Potassium 3.5 L (3.6-5.0) mmol/L Chloride 104.1 (98-107) mmol/L Carbon Dioxide 19 L (22-30) mmol/L Anion Gap 15 mmol/L BUN 7 (7-17) mg/dL Creatinine 0.6 (0.6-1.2) mg/dL Estimated GFR > 60 ml/min BUN/Creatinine Ratio 12 % Glucose 102 H (65-100) mg/dL Calcium 9.1 (8.4-10.2) mg/dL Total Bilirubin 0.50 (0.1-1.2) mg/dL AST 13 (5-40) units/L ALT 10 (7-56) units/L Alkaline Phosphatase 67 (35-129) units/L Total Protein 8.1 (6.3-8.2) g/dL Albumin 4.4 (3.9-5) g/dL Albumin/Globulin Ratio 1.2 % - Medical Decision Making 30-year-old -German female patient presents with complaints of nausea vomiting in for 3 days. She states she is 12 weeks and currently following with [facility]. Patient has a history of hyperemesis gravidarum with her prior pregnancies that is difficult to control. She states she has tried Diclegis, Zofran, and Phenergan suppositories without improvement. She denies any abdominal pain, vaginal bleeding, hematemesis/coffee-ground emesis, chest pain, cough, shortness of breath, or fever/chills/sweats. No other past medical history per patient. Patient given IV antiemetics and lactated Ringer's. She is now tolerating fluids p.o. states she is feeling well. Patient's vitals remained stable and she is well-appearing. Patient to discharge home and follow-up with her [facility] in 3 to 5 days. Discussed signs and symptoms that should prompt immediate return to the emergency department in detail patient verbalized understanding. Critical care attestation.: If time is entered above; I have spent that time in minutes in the direct care of this critically ill patient, excluding procedure time. ED Disposition Clinical Impression: Nausea/vomiting in Disposition: HOME / SELF CARE / HOMELESS Is pt being admited?: No Condition: Stable Instructions: Hyperemesis Gravidarum Prescriptions: diphenhydrAMINE [Benadryl CAP] 25 mg PO Q8HR PRN #30 capsule PRN Reason: Nausea Metoclopramide [Reglan] 10 mg PO TID PRN #30 tab PRN Reason: Nausea Referrals: [facility] [Provider Group] - 2-3 Days Forms: Work/School Release Form(ED)
[2021-03-23 13:26] LABS: Alanine Aminotransferase 10 units/L (7-56); Albumin 4.4 g/dL (3.9-5); Blood Urea Nitrogen 7 mg/dL (7-17); Calcium 9.1 mg/dL (8.4-10.2); Hemolysis Index 11
[2021-03-23 13:56] LABS: BUN/Creatinine Ratio 12
[2021-03-23] MEDS ORDERED: POTASSIUM CHLORIDE ER 20 MEQ TAB PO ONE (14:50)
== END 2021-03-23 15:31 | disposition home or self-care (01) ==
LOC: ED 11:53
DX: O21.9 Vomiting of pregnancy, unspecified (principal); Z88.0 Allergy status to penicillin; Z87.891 Personal history of nicotine dependence; Z3A.12 12 weeks gestation of pregnancy
CPT/HCPCS: 36415; 80053; 85025; 96361; 96374; 96375; 99283; J1200; J2765; J7120

== ENCOUNTER 2021-11-07 01:13 | Outpatient (CLI) | payer MEDICAID ==
[2021-11-07 01:32] VITALS: BP 118/63
== END 2021-11-07 03:15 | disposition home or self-care (01) ==
LOC: TRG 01:13 → APU 01:14 → TRG 03:15
PROVIDERS: ATTEND Obstetrics & Gynecology
DX: Z34.93 Encounter for supervision of normal pregnancy, unspecified, third trimester (principal); Z3A.40 40 weeks gestation of pregnancy
CPT/HCPCS: 36415; 84112

== ENCOUNTER 2021-11-11 15:04 | Inpatient (IN) | payer MEDICAID ==
[2021-11-11] MEDS ORDERED: LIDOCAINE (2%) 20 MG/1 ML VIAL 20 ML MDV INFILTRATI ONE (21:41)
[2021-11-11] MEDS ORDERED: ACETAMINOPHEN 325 MG TAB PO PRN (21:41)
[2021-11-11] MEDS ORDERED: BUTORPHANOL 2 MG/1 ML INJ IV PRN ×2 (21:41)
[2021-11-11] MEDS ORDERED: ePHEDrine SULFATE 50 MG/1 ML INJ IV PRN (21:41)
[2021-11-11] MEDS ORDERED: fentaNYL 100 MCG/2 ML INJ IV PRN (21:41)
[2021-11-11] MEDS ORDERED: MINERAL OIL 30 ML ORAL LIQD PO PRN (21:41)
[2021-11-11] MEDS ORDERED: CARBOPROST TROMETHAMINE 250 MCG/1 ML INJ IM PRN (21:41)
[2021-11-11] MEDS ORDERED: OXYTOCIN 10 UNIT/1 ML INJ IM PRN (21:41)
[2021-11-11] MEDS ORDERED: METHYLERGONOVINE MALEATE 0.2 MG/ML VIAL IM PRN (21:41)
[2021-11-11] MEDS ORDERED: LOPERAMIDE 2 MG CAP PO PRN (21:41)
[2021-11-11] MEDS ORDERED: TERBUTALINE 1 MG/1 ML INJ SUB-Q PRN (21:41)
[2021-11-11] MEDS ORDERED: miSOPROStol 200 MCG TAB PR PRN (21:41)
[2021-11-11] MEDS ORDERED: LACTATED RINGERS 1,000 ML IV SCH (21:45)
[2021-11-11] MEDS ORDERED: OXYTOCIN DRIP 30 UNITS/500 ML BAG IV SCH ×2 (22:00)
[2021-11-12] MEDS: miSOPROStol 25 MCG TAB PO SCH ×2 (00:11→05:08)
--- NOTE | 2021-11-12 00:12 | Ultrasound Report ---
ULTRASOUND OBSTETRIC COMPLETE INDICATION / CLINICAL INFORMATION: ARTEM, EFW. Clinical Gestational Age (GA) in weeks, days: 40 weeks 4 days TECHNIQUE: Transabdominal. COMPARISON: None available. FINDINGS: NUMBER: Single PRESENTATION: cephalic PLACENTA: Not imaged MATERNAL ADNEXA: No significant abnormality. AMNIOTIC FLUID VOLUME: decreased AMNIOTIC FLUID INDEX (ARTEM) in cm (if measured): 2.1 MEASUREMENTS: - Biparietal Diameter = 10.1 cm = 41 weeks 6 days - Head Circumference = 33.9 cm = 34 weeks 6 days - Abdominal Circumference = 31.7 cm = 35 weeks 4 days - Femur Length = 6.8 cm = 34 weeks 6 days - Estimated Weight (in grams, if calculated): 2924 - Heart Rate (beats per minute): 158 ADDITIONAL FINDINGS: None. AVERAGE ULTRASOUND AGE (AUA) in weeks, days = 37 weeks 6 days IMPRESSION: 1. Single intrauterine with AUA of 37 weeks 6 days. Estimated weight is 2924 g. 2. Decreased amniotic fluid index measuring 2.1 cm. 3. No other significant abnormality. Signer Name: Sebastián Rogers MD Signed: 11/12/2021 12:08 AM Workstation Name: [id number]
[2021-11-12 00:13] LABS: Hematocrit 35.7 % (30.3-42.9); Hemoglobin 11.4 gm/dl (10.1-14.3); Mean Corpuscular HGB Conc 32 % (30-34); Mean Corpuscular Volume 87 fl (79-97); Platelet Count 187 K/mm3 (140-440); Red Blood Count 4.08 M/mm3 (3.65-5.03); Red Cell Distribution Width 13.8 % (13.2-15.2)
--- NOTE | 2021-11-12 00:27 | History and Physical Report ---
History of Present Illness Date of examination: 11/11/21 Date of admission: 11/11/2021 Chief complaint: Induction of labor secondary to oligohydramnios and small for gestational age. History of present illness: The patient is a 30-year-old at 40-4/7 weeks gestation who originally presented to labor and delivery for induction of labor secondary to being post due date. There is no vaginal bleeding. There is good movement. The patient reports irregular contractions. The patient reported leaking of fluid 5 days ago. She sought care by going to [facility] tri[facility]. The patient reports that ROM plus test was negative. She was discharged home in stable condition. Today, OB ultrasound limited was performed which revealed an amniotic fluid index of 2.1 cm and an estimated weight of 2924 g. Based on these findings, this patient's estimated weight is in the 5th percentile which fulfills the contemporary criteria for small for gestational age fetus. Furthermore the amniotic fluid index at 2.1 cm fulfills the contemporary criteria for oligohydramnios. Based on the clinical diagnoses of oligohydramnios, small for gestational age fetus, and post due date, this patient is admitted to labor and delivery for medically indicated induction of labor. The risks, alternatives, and benefits were explained the patient in great detail. She voiced understanding. She wished to proceed with induction of labor. 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 Family/Genetic History: none Social history: single - Obstetrical History Expected Date of Delivery: 11/07/21 Actual Gestation: 40 Week(s) 5 Day(s) : 4 Para: 2 Hx # Term Pregnancies: 2 Spontaneous Abortions: 1 Medications and Allergies Allergies Allergy/AdvReac Type Severity Reaction Status Date / Time Penicillins Allergy Rash Verified 12/22/17 01:13 Home Medications Medication Instructions Recorded Confirmed Last Taken Type Vit-Fe Fumar-FA [ 1 tab PO QDAY 03/16/15 06/04/21 06/02/21 History Vitamin] Cholecalciferol (Vitamin D3) 1 tab PO ONCE 06/03/21 06/04/21 06/02/21 History [Vitamin D3] ondansetron HCL [Zofran] 4 mg PO Q6HR #14 tablet 06/04/21 Unknown Rx Active Meds: Active Medications Acetaminophen (Acetaminophen 325 Mg Tab) 650 mg PO Q4H PRN PRN Reason: Pain, Mild (1-3) Butorphanol Tartrate (Butorphanol 2 Mg/1 Ml Inj) 1 mg IV Q2H PRN PRN Reason: Pain, Moderate(4-6) LABOR PAIN Butorphanol Tartrate (Butorphanol 2 Mg/1 Ml Inj) 2 mg IV Q2H PRN PRN Reason: Pain , Severe (7-10) Carboprost Tromethamine (Carboprost Tromethamine 250 Mcg/1 Ml Inj) 250 mcg IM ONCE PRN PRN Reason: Uterine Bleeding Ephedrine Sulfate (Ephedrine Sulfate 50 Mg/1 Ml Inj) 10 mg IV Q2M PRN PRN Reason: Hypotension Fentanyl (Fentanyl 100 Mcg/2 Ml Inj) 100 mcg IV Q2H PRN PRN Reason: Pain,Severe (7-10) LABOR PAIN Lactated Ringer's (Lactated Ringers) 1,000 mls @ 125 mls/hr IV DIRECT JUDD Oxytocin/Sodium Chloride (Pitocin/Ns 30 Unit/500ml) 30 units in 500 mls @ 40 mls/hr IV TITR JUDD; Protocol Methylergonovine Maleate (Methylergonovine Maleate 0.2 Mg/Ml Vial) 0.2 mg IM ONCE PRN PRN Reason: Uterine Bleeding Misoprostol (Misoprostol 25 Mcg Tab) 25 mcg PO Q4H JUDD Stop: 11/12/21 10:01 Terbutaline Sulfate (Terbutaline 1 Mg/1 Ml Inj) 0.25 mg SUB-Q ONCE PRN PRN Reason: Hyperstimulation/Hypertonicity Review of Systems All systems: negative - Vital Signs Vital signs: Vital Signs Temp Pulse Resp BP Pulse Ox 98.8 F 77 16 102/61 97 11/11/21 15:35 11/11/21 15:35 11/11/21 15:35 11/11/21 15:35 11/11/21 15:35 Temp Pulse Resp BP Pulse Ox 98.8 F 60 16 102/61 72 L 11/11/21 15:35 11/11/21 21:03 11/11/21 15:35 11/11/21 15:37 11/11/21 21:04 - Physical Exam Breasts: Positive: normal Cardiovascular: Regular rate Lungs: Positive: Normal air movement Abdomen: Positive: normal appearance Genitourinary (Female): Positive: normal external genitalia, normal perenium Vulva: both: normal Vagina: Positive: normal moisture Uterus: Positive: enlarged Adnexa: both: normal Anus/Rectum: Positive: normal perianal skin Extremities: Positive: normal Deep Tendon Reflex Grade: Normal +2 - Obstetrical FHR: category 1 Uterine Contraction Monitor Mode: Palpation Cervical Dilatation: 1 Cervical Effacement Percentage: 50 station: -3 Uterine Contraction Pattern: Irregular Results Result Diagrams: 11/11/21 23:44 All other labs normal. Ultrasound: report reviewed (OB ultrasound limited= single live intrauterine . Vertex. Estimated weight is 2924 g. This is in the 5th percentile. Amniotic fluid next is 2.1 cm.) Assessment and Plan - Patient Problems (1) 40 weeks gestation of Current Visit: No Status: Acute Plan to address problem: care is up-to-date at [facility]. The patient has a normal 1 hour glucose tolerance test. Her GBS rectovaginal culture is negative this . (2) Post-term , 40-42 weeks of gestation Current Visit: No Status: Acute Plan to address problem: This patient's is post due date. Induction of labor was recommended. The risks, alternatives, and benefits were explained in great detail. She voiced understanding. She wished to proceed with induction of labor. (3) Oligohydramnios in third trimester Current Visit: No Status: Acute Qualifiers: Fetus number: single or unspecified fetus Qualified Code(s): O41.03X0 - Oligohydramnios, third trimester, not applicable or unspecified Plan to address problem: Amniotic fluid index is 2.1 cm. Etiology is unknown. Induction of labor was recommended. The risks, alternatives, and benefits were explained in great detail. She voiced understanding. She wished to proceed with induction of labor. (4) Small for gestational age fetus Current Visit: Yes Status: Acute Plan to address problem: Estimated weight is in the 5th percentile. Etiology is unknown. Induction of labor was recommended. The risks, alternatives, and benefits were explained in great detail. She voiced understanding. She wished to proceed with induction of labor. (5) Encounter for induction of labor Current Visit: No Status: Acute Plan to address problem: Ripen cervix with oral Cytotec and Cook's catheter. After Cook's catheter falls out, artificially rupture membranes. Start Pitocin as needed.
[2021-11-12] MEDS: ONDANSETRON 4 MG/2 ML INJ IV PRN ×3 (00:42→09:07)
[2021-11-12] MEDS ORDERED: ePHEDrine SULFATE 50 MG/1 ML INJ ONE (03:42)
[2021-11-12] MEDS ORDERED: BUPIVACAINE/PF (0.25%) 2.5 MG/ML 10 ML VIAL INFILTRATI ONE (03:51)
[2021-11-12] MEDS ORDERED: NALOXONE 2 MG/2 ML INJ IV PRN (04:26)
[2021-11-12] MEDS ORDERED: ePHEDrine SULFATE 50 MG/1 ML INJ IV PRN (04:26)
--- NOTE | 2021-11-12 04:28 | Anesthesia Consultation ---
Anesthesia Consult and Med Hx Date of service: 11/12/21 - Airway Anesthetic Teeth Evaluation: Poor ROM Head & Neck: Adequate Mental/Hyoid Distance: Adequate Mallampati Class: Class II Intubation Access Assessment: Probably Good - Pulmonary Exam CTA: Yes - Cardiac Exam Cardiac Exam: RRR - Pre-Operative Health Status ASA Pre-Surgery Classification: ASA2 Proposed Anesthetic Plan: Epidural - Pulmonary Hx Smoking: No Hx Asthma: No COPD: No Hx Pneumonia: No - Cardiovascular System Hx Hypertension: No Hx Heart Attack/AMI: No - Central Nervous System Hx Seizures: No Hx Psychiatric Problems: No - Endocrine Hx Renal Disease: No Hx End Stage Renal Disease: No Hx Hypothyroidism: No Hx Hyperthyroidism: No - Hematic Hx Anemia: No Hx Sickle Cell Disease: No - Other Systems Hx Alcohol Use: No Hx Cancer: No Hx Obesity: Yes
--- NOTE | 2021-11-12 04:30 | Progress Note ---
Labor Epidural - Labor Epidural Start Time: 03:53 Stop Time: 04:09 Performed by:: LIDIA LEVY Procedure: Patient is requesting a laboring epidural for laboring pain. Patient IDed, H&P reviewed, all questions and concerns were answered, and consent was signed. Timeout was performed at bedside. Patient in sitting position. Sterile prep and drape was performed. [3] ml of 1% lidocaine skin wheal at L[3]- L [4]. 17- gauge Tuohy epidural needle was advanced to loss of resistance with saline technique 6cmX 1 attempt. Single dural perforation via 24 guage spinal needle placed through the shaft of Epidural needle. Positive CSF via spinal needle. Negative CSF negative blood via Epidural needle. Epidural catheter advanced to [10] centimeters. [NEGATIVE] Aspiration [NEGATIVE] test dose. Negative Paresthesia. Sterile dressing applied. Patient tolerated procedure. Pain Score 7/10 to 0/10.
[2021-11-12] MEDS ORDERED: fentaNYL-BUPIV 2 MCG/ML-0.125% 200 MCG/100 ML BAG EPIDURAL SCH (05:00)
--- NOTE | 2021-11-12 08:24 | Event Note ---
Date: 11/12/21 Assumed care of patient; SVE 1.
[2021-11-12] MEDS ORDERED: fentaNYL 100 MCG/2 ML INJ IV PRN (08:30)
[2021-11-12] MEDS ORDERED: NalbUPHINE 10 MG/1 ML INJ IV PRN (08:30)
[2021-11-12] MEDS ORDERED: ACETAMINOPHEN 325 MG TAB PO PRN ×2 (08:30→11:00)
[2021-11-12] MEDS ORDERED: MINERAL OIL 30 ML ORAL LIQD ONE (09:00)
--- NOTE | 2021-11-12 09:15 | Event Note ---
Date: 11/12/21 Patient began vomiting at 08:50 and stated she needs to push. Prolonged deceleration of FHR noted. SVE anterior lip, 0 station, OP position. Oxygen applied per face mask; positioned patient in left lateral position. Deceleration of FHR continued; called Dr. Hoyt to delivery room to expedite delivery due to FHR tracing.
[2021-11-12] MEDS ORDERED: HYDROcodone/ACETAMINOPHEN 5-325 MG TAB PO PRN ×2 (10:30→11:00)
--- NOTE | 2021-11-12 10:30 | Procedure Note ---
OB Delivery Note - Delivery Date of Delivery: 11/12/21 Surgeon: EMMANUEL FISHER Estimated blood loss: 200cc - Vaginal Delivery position: OA Intrapartum events: mult.variable deceleratio Delivery induction: none Delivery augmentation: rupture of membranes, pitocin Delivery monitor: external FHT, external uterine Route of delivery: vacuum extraction Indicators for instrumentation: nonreassuring FHR tracing Delivery placenta: spontaneous Delivery cord: 3 umbilical vessels Episiotomy: none Delivery laceration: none Delivery comments: Patient pushed to deliver a viable male via vacuum-assisted vaginal delivery over an intact perineum with weight 3590gms and 8/9. Vacuum applied x3 with no excess traction to a maximum pressure of 330 mmHg vacuum applied for multiple decelerations to 50 bpm with maternal exhaustion at +2 station. Position ADOLFO, loose nuchal cord. Spontaneous cry at delivery. Delivery of the anterior shoulder atraumatic, remainder of delivery uncomplicated. Cord clamped cut and baby handed to waiting [facility] team. Spontaneous delivery of an intact placenta with three-vessel cord. Inspection of the perineum cervix and vagina revealed no lacerations. Firm fundus, EBL 75ml. All sponge needle and instrument counts correct x2. Mom and baby stable to . Ranjan Fisher MD
[2021-11-12] MEDS ORDERED: diphenhydrAMINE 25 MG CAP PO PRN (11:00)
[2021-11-12] MEDS ORDERED: LANOLIN/ZINC/DIMETHICONE (LANSINOH) 7 GM TP PRN ×2 (11:00)
[2021-11-12] MEDS ORDERED: PROMETHAZINE 25 MG TAB PO PRN (11:00)
[2021-11-12] MEDS ORDERED: oxyCODONE /ACETAMINOPHEN 5-325MG TAB PO PRN (11:00)
[2021-11-12] MEDS ORDERED: ONDANSETRON 4 MG/2 ML INJ IV PRN ×2 (11:00)
[2021-11-12] MEDS ORDERED: PROMETHAZINE 25 MG RECT SUPP PR PRN (11:00)
[2021-11-12] MEDS ORDERED: BENZOCAINE/MENTHOL 20/0.5% TOP SPRAY 56 GM TP PRN (11:00)
[2021-11-12] MEDS ORDERED: KETOROLAC 30 MG/1 ML INJ IV PRN (11:00)
[2021-11-12] MEDS ORDERED: WITCH HAZEL/ GLYCERIN PAD TP PRN ×2 (11:00)
[2021-11-12] MEDS: IBUPROFEN 600 MG TAB PO SCH ×2 (14:41→20:11)
--- NOTE | 2021-11-12 19:59 | Post Anesthesia Evaluation ---
- Post Anesthesia Evaluation Patient Participated: Yes Airway Patent: Yes Stable Respiratory Function: Yes Nausea/Vomiting: No Temp > 96.8F: Yes Pain Manageable: Yes Adequeate Hydration: Yes Anesthesia Complications: No Block Receding Appropriately: Yes Patient on Ventilator: No
[2021-11-12] MEDS: DOCUSATE SODIUM 100 MG CAP PO SCH (21:41)
[2021-11-12] MEDS ORDERED: MAGNESIUM HYDROXIDE (MOM) ORAL LIQD UDC PO PRN ×2 (22:00)
[2021-11-13 00:45] LABS: Hematocrit 32.5 % (30.3-42.9); Hemoglobin 10.8 gm/dl (10.1-14.3)
[2021-11-13] MEDS: IBUPROFEN 600 MG TAB PO SCH ×4 (01:24→22:11)
[2021-11-13] MEDS: HYDROcodone/ACETAMINOPHEN 5-325 MG TAB PO PRN ×2 (06:24→12:09)
--- NOTE | 2021-11-13 06:29 | Progress Note ---
Subjective - Subjective Date of service: 11/13/21 Interval history: SP VAVD PPD#1 stable continue routine PP Care DC home tomorrow Ranjan Hoyt MD Patient reports: appetite normal, voiding normally, pain well controlled, ambulating normally : doing well Objective - Vital Signs Latest vital signs: Vital Signs Temp Pulse Resp BP BP Pulse Ox Pulse Ox 11/13/21 06:24 20 11/13/21 02:30 97.9 F 61 18 96/50 97 11/13/21 01:24 20 11/12/21 21:25 97.9 F 67 20 96/54 98 11/12/21 20:14 98 11/12/21 20:11 18 11/12/21 12:40 98.3 F 67 14 102/61 100 100 11/12/21 11:58 67 108/55 11/12/21 11:43 61 110/69 11/12/21 11:36 103 H 84 11/12/21 11:34 82 L 11/12/21 11:29 61 107/58 87 11/12/21 11:24 79 100 11/12/21 11:19 65 100 11/12/21 11:14 72 106/53 97 11/12/21 11:09 68 99 11/12/21 11:04 71 100 11/12/21 10:59 67 169/70 100 11/12/21 10:54 60 100 11/12/21 10:49 66 94 11/12/21 10:44 63 96 11/12/21 10:39 72 81 L 11/12/21 10:36 91 H 80 L 11/12/21 10:34 78 94 11/12/21 10:30 59 L 11/12/21 10:29 76 83 L 11/12/21 10:24 83 74 L 11/12/21 10:19 82 100 11/12/21 10:18 91 H 70 L 11/12/21 10:14 69 119/62 100 11/12/21 10:09 77 92 11/12/21 10:04 74 47 L 11/12/21 10:02 81 100 11/12/21 09:58 85 84 11/12/21 09:57 76 100 11/12/21 09:55 98.0 F 11/12/21 09:53 75 81 L 11/12/21 09:52 69 100 11/12/21 09:47 67 100 11/12/21 09:42 64 100 11/12/21 09:40 77 89 11/12/21 09:37 65 100 11/12/21 09:32 57 L 108/68 100 11/12/21 09:27 60 100 11/12/21 09:22 57 L 100 11/12/21 09:17 57 L 100 11/12/21 09:12 55 L 100 11/12/21 09:07 76 100 11/12/21 09:03 74 120/70 11/12/21 09:02 58 L 100 11/12/21 08:57 67 91 11/12/21 08:52 72 98 11/12/21 08:47 77 100 11/12/21 08:42 56 L 100 11/12/21 08:41 54 L 73 L 11/12/21 08:37 55 L 100 11/12/21 08:32 56 L 134/72 100 11/12/21 08:27 55 L 98 11/12/21 08:22 54 L 98 11/12/21 08:17 55 L 96 11/12/21 08:12 58 L 96 11/12/21 08:07 56 L 96 11/12/21 08:02 57 L 100/58 97 11/12/21 07:57 58 L 97 11/12/21 07:52 58 L 97 11/12/21 07:47 58 L 96 11/12/21 07:42 56 L 97 11/12/21 07:37 57 L 97 11/12/21 07:33 97 11/12/21 07:32 60 98 11/12/21 07:30 97.6 F 56 L 14 97/55 97/55 97 11/12/21 07:27 56 L 97 11/12/21 07:26 55 L 98/57 11/12/21 07:22 55 L 99 11/12/21 07:21 62 108/57 11/12/21 07:16 58 L 96 11/12/21 07:15 58 L 101/56 11/12/21 07:11 58 L 97 11/12/21 07:10 61 104/59 11/12/21 07:06 59 L 103/59 97 11/12/21 07:01 58 L 96 11/12/21 07:00 59 L 99/59 11/12/21 06:57 56 L 102/59 11/12/21 06:56 58 L 96 11/12/21 06:51 62 98 11/12/21 06:50 56 L 101/57 11/12/21 06:46 58 L 101/61 97 11/12/21 06:41 60 95/56 97 11/12/21 06:36 57 L 97 11/12/21 06:35 53 L 107/64 11/12/21 06:31 57 L 98 11/12/21 06:30 55 L 99/59 Intake and Output 11/12/21 11/12/21 11/13/21 15:59 23:59 07:59 Intake Total 480 240 Output Total 300 700 Balance -300 -220 240 Intake: Intake, Free Water 480 240 Output: Urine 300 700 Void 300 700 Other: Total, Output Amount 300 300 # Voids Void 1 2 Estimated Blood Loss 75 - Exam Breasts: Present: deferred Cardiovascular: Present: Regular rate Lungs: Present: Clear to auscultation Abdomen: Present: normal appearance, soft, normal bowel sounds Uterus: Present: normal, firm, fundal height below umbilicus, other (lochia moderate) Extremities: Present: normal Deep Tendon Reflex Grade: Normal +2
--- NOTE | 2021-11-13 06:30 | Discharge Summary ---
Providers - Providers Date of Admission: 11/11/21 21:41 Date of discharge: 11/14/21 Attending physician: ELOINA MODI Primary care physician: ELOINA MODI Hospitalization Delivery: vacuum extraction Discharge diagnosis: IUP at term delivered Condition at discharge: Stable Disposition: 01 HOME / SELF CARE / HOMELESS Plan - Provider Discharge Summary Activity: no sex for 6 weeks Diet: routine Instructions: routine Additional instructions: [] Smoking cessation referral if applicable(refer to patient education folder for contact #) [] Refer to [facility] Booklet Call your doctor immediately for: * Fever > 100.5 * Heavy vaginal bleeding ( >1 pad per hour) * Severe persistent headache * Shortness of breath * Reddened, hot, painful area to leg or breast * Drainage or odor from incision. * Keep incision clean and dry at all times and follow doctor's instructions regarding bathing/showering - Follow up plan Follow up: ELOINA MODI MD [Primary Care Provider] - 6 Weeks
[2021-11-13] MEDS: DOCUSATE SODIUM 100 MG CAP PO SCH ×2 (10:10→22:11)
[2021-11-14] MEDS: HYDROcodone/ACETAMINOPHEN 5-325 MG TAB PO PRN (06:23)
[2021-11-14] MEDS: IBUPROFEN 600 MG TAB PO SCH ×2 (07:05→10:25)
[2021-11-14] MEDS: DOCUSATE SODIUM 100 MG CAP PO SCH (10:26)
[2021-11-14 12:14] VITALS: BP 114/69
== END 2021-11-14 12:35 | disposition home or self-care (01) | DRG 775 ==
LOC: TRG 15:04 → LD 15:05 → TRG 21:41 → LD 21:41 → OB 11-12 12:31 → UNDODISIN 11-13 12:35
PROVIDERS: ADMIT Obstetrics & Gynecology; ATTEND Obstetrics & Gynecology
PROC: 10D07Z6 Extraction of Products of Conception, Vacuum, Via Natural or Artificial Opening (ICD-10-PCS; principal; 2021-11-12)
PROC: 10907ZC Drainage of Amniotic Fluid, Therapeutic from Products of Conception, Via Natural or Artificial Opening (ICD-10-PCS; 2021-11-12)
PROC: 3E0R3BZ Introduction of Anesthetic Agent into Spinal Canal, Percutaneous Approach (ICD-10-PCS; 2021-11-12)
PROC: 00HU33Z Insertion of Infusion Device into Spinal Canal, Percutaneous Approach (ICD-10-PCS; 2021-11-12)
DX: O48.0 Post-term pregnancy (principal); O36.5130 Maternal care for known or suspected placental insufficiency, third trimester, not applicable or unspecified; Z3A.40 40 weeks gestation of pregnancy; Z37.0 Single live birth; O41.03X0 Oligohydramnios, third trimester, not applicable or unspecified; O99.214 Obesity complicating childbirth; O76 Abnormality in fetal heart rate and rhythm complicating labor and delivery; O69.81X0 Labor and delivery complicated by cord around neck, without compression, not applicable or unspecified
CPT/HCPCS: 36415; 76815; 76816; 85014; 85018; 85027; 86850; 86900; 86901; G0378; J3490; J0595; J2405; J2590; J7120; U0003